=== PATIENT | female | born 1985 | race Caucasian/White ===

== ENCOUNTER 2017-06-10 19:05 | Emergency (ER) | payer SELFPAY ==
[2017-06-10 19:33] VITALS: BP 109/64; PULSE 89; TEMP 99.7; BMI 64.1
--- NOTE | 2017-06-10 21:03 | PDOC ---
History of Present Illness - General History Source: Patient Exam Limitations: No Limitations - History of Present Illness Initial Comments: 06/10/17 22:24 The patient is a 31 year old female, with no significant past medical history, who presents to the emergency department with flank pain and abdominal pain for approximately 3 days. The patient reports her pain was initially localized to the right flank. Patient reports she then noted pain in her abdomen 2 days ago. She reports the pain is localized suprapubically and describes it as a burning sensation. She reports associated dysuria, but denies hematuria, frequency, or urgency. Patient reports associated nausea and vomiting(nonbloody/nonbilious, last episode yesterday night), but denies any diarrhea or constipation. Today patient reports new onset of headache localized to the denominational bilaterally and chills. Patient denies any changes in vision, fever, chills, cough, or dizziness. Patient reports she gets headaches relatively frequently but not as strong as today. Patient states she has not taken anything for the pain. She denies any recent travel or sick contacts. Patients LMP was 05/31/17. Allergies: NKDA Past Surgical History: None reported. Social History: Non smoker. No ETOH or recreational drug use. <Azeb Delaney - Last Filed: 06/10/17 23:32> <Philomena Mcwilliams - Last Filed: 06/11/17 00:49> <Ziyad Orlando - Last Filed: 06/11/17 00:57> - General Chief Complaint: Pain Stated Complaint: PAIN, ACUTE Time Seen by Provider: 06/10/17 20:59 Past History <Azeb Delaney - Last Filed: 06/10/17 23:32> <Philomena Mcwilliams - Last Filed: 06/11/17 00:49> - Suicide/Smoking/Psychosocial Hx Smoking History: Never smoked Have you smoked in the past 12 months: No Information on smoking cessation initiated: No Hx Alcohol Use: No Drug/Substance Use Hx: No <Ziyad Orlando - Last Filed: 06/11/17 00:57> - Past Medical History Allergies/Adverse Reactions: Allergies Allergy/AdvReac Type Severity Reaction Status Date / Time No Known Allergies Allergy Verified 06/10/17 19:33 Home Medications: Ambulatory Orders Sulfamethoxazole/Trimethoprim [Bactrim Ds -] 1 tab PO BID #20 tablet 06/11/17 Review of Systems - Review of Systems Able to Perform ROS?: Yes Comments:: 06/10/17 22:30 CONSTITUTIONAL: Yes: chills. No fever, no fatigue EYES: No visual changes ENT: No ear pain, no sore throat CARDIOVASCULAR: No chest pain, no palpitations RESPIRATORY: No cough, no SOB GI: Yes abdominal pain, nausea, vomiting. No constipation, no diarrhea. GENITOURINARY: Yes dysuria. No frequency, no hematuria MUSCULOSKELETAL: Yes right flank pain. No back pain, no joint pain, no myalgias SKIN: No rash NEURO: No headache <Azeb Delaney - Last Filed: 06/10/17 23:32> *Physical Exam - Vital Signs Last Vital Signs Temp Pulse Resp BP Pulse Ox 99.7 F H 89 18 109/64 100 06/10/17 19:28 06/10/17 19:28 06/10/17 19:28 06/10/17 19:28 06/10/17 19:28 - Physical Exam Comments: 06/10/17 22:31 CONSTITUTIONAL: Well-appearing; well-nourished; in no apparent distress HEAD: Normocephalic; atraumatic EYES: PERRL; EOM intact ENMT: External appears normal; normal oropharynx NECK: Supple; non-tender; no cervical lymphadenopathy CARD: Normal S1, S2; no murmurs, rubs, or gallops RESP: Normal chest excursion with respiration; breath sounds clear and equal bilaterally; no wheezes, rhonchi, or rales BACK: Mild right CVA tenderness. No left CVA tenderness. ABD: Mild suprapubic tenderness. Soft, non-distended; no palpable organomegaly, no palpable hernias EXT: Normal ROM in all four extremities; non-tender to palpation; distal pulses intact SKIN: Warm, dry, no rash NEURO: No focal neurological deficiencies. <Azeb Delaney - Last Filed: 06/10/17 23:32> - Vital Signs Last Vital Signs Temp Pulse Resp BP Pulse Ox 99.7 F H 89 18 109/64 100 06/10/17 19:28 06/10/17 19:28 06/10/17 19:28 06/10/17 19:28 06/10/17 19:28 <Philomena Mcwilliams - Last Filed: 06/11/17 00:49> - Vital Signs Last Vital Signs Temp Pulse Resp BP Pulse Ox 99.7 F H 89 18 109/64 100 06/10/17 19:28 06/10/17 19:28 06/10/17 19:28 06/10/17 19:28 06/10/17 19:28 <Ziyad Orlando - Last Filed: 06/11/17 00:57> ED Treatment Course - LABORATORY CBC & Chemistry Diagram: 06/10/17 22:40 06/10/17 22:40 - ADDITIONAL ORDERS Additional order review: Laboratory Results 06/10/17 22:00 Urine Color Ltyellow Urine Appearance Slcloudy Urine pH 5.0 Urine Protein 1+ H Urine Glucose (UA) Negative Urine Ketones 1+ H Urine Blood 2+ H Urine Nitrite Negative Urine Bilirubin Negative Urine Urobilinogen Negative Urine RBC 11 Urine WBC 252 Ur Epithelial Cells Rare Urine Mucus Rare Urine HCG, Qual Negative - Medications Given in the ED: ED Medications Discontinued Medications Generic Name Dose Route Start Last Admin Trade Name Freq PRN Reason Stop Dose Admin Ketorolac Tromethamine 60 mg 06/10/17 21:32 06/10/17 22:05 Toradol Injection - IM 06/10/17 21:33 60 mg ONCE ONE Administration <Azeb Delaney - Last Filed: 06/10/17 23:32> - LABORATORY CBC & Chemistry Diagram: 06/10/17 22:40 06/10/17 22:40 - ADDITIONAL ORDERS Additional order review: Laboratory Results 06/10/17 06/10/17 22:40 22:00 Sodium 138 Potassium 3.8 Chloride 102 Carbon Dioxide 26 Anion Gap 10 BUN 8 Creatinine 0.6 Creat Clearance w eGFR > 60 Random Glucose 115 H Calcium 8.8 Total Bilirubin 1.6 H AST 14 L ALT 18 Alkaline Phosphatase 60 Total Protein 7.4 Albumin 3.9 Urine Color Ltyellow Urine Appearance Slcloudy Urine pH 5.0 Urine Protein 1+ H Urine Glucose (UA) Negative Urine Ketones 1+ H Urine Blood 2+ H Urine Nitrite Negative Urine Bilirubin Negative Urine Urobilinogen Negative Urine RBC 11 Urine WBC 252 Ur Epithelial Cells Rare Urine Mucus Rare Urine HCG, Qual Negative 06/10/17 22:40 RBC 3.66 MCV 87.6 MCHC 33.9 RDW 13.0 MPV 8.3 Neutrophils % 70.9 Lymphocytes % 18.9 Monocytes % 8.2 Eosinophils % 1.4 Basophils % 0.6 - RADIOLOGY Radiograph Interpretation: 06/11/17 00:50 DATE OF SERVICE: 2017-06-10 22:59:21 EXAM: ULTRASOUND RENAL No renal mass, stones or hydronephrosis bilaterally. Right kidney visualization slighlty limited by bowel gas. Mary Saucedo M.D. 06/11/2017 00:40 EST - Medications Given in the ED: ED Medications Discontinued Medications Generic Name Dose Route Start Last Admin Trade Name Freq PRN Reason Stop Dose Admin Ceftriaxone Sodium 1 gm/ 50 mls @ 100 mls/hr 06/10/17 22:32 06/10/17 22:44 Dextrose IVPB 06/10/17 23:01 100 mls/hr ONCE ONE Administration Ketorolac Tromethamine 60 mg 06/10/17 21:32 06/10/17 22:05 Toradol Injection - IM 06/10/17 21:33 60 mg ONCE ONE Administration <Philomena Mcwilliams - Last Filed: 06/11/17 00:49> - LABORATORY CBC & Chemistry Diagram: 06/10/17 22:40 06/10/17 22:40 <Ziyad Orlando - Last Filed: 06/11/17 00:57> Medical Decision Making - Medical Decision Making 06/11/17 00:55 Patient is a well-appearing 31-year-old female who presents to the ER with suprapubic abdominal pain, right flank pain, mild dysuria and intermittent headache which had resolved prior to arrival in the ER. On initial evaluation, patient noted to have low-grade fever, serial abdominal exams reveal suprapubic and right CVA tenderness only. There is no tenderness at the McBurney's point and Raines's is negative. CBC is within normal limit. Urinalysis reveals pyuria with small number of red blood cells per high-power field. Right kidney ultrasound shows no evidence of renal masses nephrolithiasis or hydronephrosis. I suspect mild pyelonephritis which may be treated as an outpatient with by mouth Bactrim. Urine cultures are been obtained and patient's received a gram of ceftriaxone in the ER. Patient tolerates by mouth and will be discharged. <Ziyad Orlando - Last Filed: 06/11/17 00:57> *DC/Admit/Observation/Transfer - Attestations Scribe Attestion: 06/10/17 22:31 Documentation prepared by Azeb Delaney, acting as medical/surgery registered nurse for Ziyad Orlando MD. <Azeb Delaney - Last Filed: 06/10/17 23:32> - Attestations Scribe Attestion: 06/11/17 00:50 Documentation prepared by Philomena Mcwilliams, acting as medical/surgery registered nurse for Ziyad Orlando MD <Philomena Mcwilliams - Last Filed: 06/11/17 00:49> - Attestations Physician Attestion: 06/11/17 00:54 The documentation was prepared by the scribe under my direct supervision. I have reviewed the documentation which correctly represents the findings, medical decision-making and critical action taken by me. <Ziyad Orlando - Last Filed: 06/11/17 00:57> Diagnosis at time of Disposition: Acute pyelonephritis - Discharge Dispostion Disposition: HOME Condition at time of disposition: Stable - Referrals Referrals: [facility] [Provider Group] - Patient Instructions Printed Discharge Instructions: DI for Kidney Infection
[2017-06-10] MEDS ORDERED: KETOROLAC TROMETHAMINE 60 MG/2 ML VIAL IM ONE (21:32)
[2017-06-10] MEDS ORDERED: KETOROLAC TROMETHAMINE 60 MG/2 ML VIAL ONE (21:46)
[2017-06-10 22:04] LABS: URINE APPEARANCE SLCLOUDY; URINE BILIRUBIN NEGATIVE (NEGATIVE); URINE BLOOD 2+ (NEGATIVE); URINE COLOR LTYELLOW; URINE GLUCOSE (UA) NEGATIVE (NEGATIVE); URINE KETONE 1+ (NEGATIVE); URINE NITRITE NEGATIVE (NEGATIVE); URINE UROBILINOGEN NEGATIVE mg/dL (0.2-1.0)
[2017-06-10 22:08] LABS: URINE LEUK ESTERASE 3+ (NEGATIVE); URINE MUCUS RARE; URINE PROTEIN 1+ (NEGATIVE); URINE RBC 11 /hpf (0-3); URINE WBC 252 /hpf (3-5)
[2017-06-10] MEDS ORDERED: CEFTRIAXONE 1 GM in DEXTROSE 5%-WATER - 50 ML IVPB ONE (22:32)
[2017-06-10] MEDS ORDERED: CEFTRIAXONE 50 ML ONE (22:41)
[2017-06-10 22:46] LABS: BASOPHIL 0.6 % (0-2.0); EOSINOPHIL 1.4 % (0-4.5); MCH 29.7 pg (25.7-33.7); MCHC 33.9 g/dl (32.0-36.0); MEAN CELL VOLUME 87.6 fl (80-96); MEAN PLT VOLUME 8.3 fl (7.5-11.1); NEUTROPHILS 70.9 % (42.8-82.8); PLATELET COUNT 265 K/MM3 (134-434); WHITE BLOOD COUNT 9.6 K/mm3 (4.0-10.0)
[2017-06-10 23:31] LABS: ALBUMIN 3.9 g/dl (3.4-5.0); ALK PHOS 60 U/L (45-117); ANION GAP 10 (8-16); BILIRUBIN,TOTAL 1.6 mg/dL (0.2-1.0); CALCIUM 8.8 mg/dL (8.5-10.1); CO2 26 mmol/L (21-32); CREATININE 0.6 mg/dL (0.55-1.02); GLUCOSE,RANDOM 115 mg/dL (74-106); SGOT/AST 14 U/L (15-37); SGPT/ALT 18 U/L (12-78); TOT PROT 7.4 g/dl (6.4-8.2)
== END 2017-06-11 01:05 | disposition home or self-care (01) ==
LOC: JER 19:05
PROC: 3E0233Z Introduction of Anti-inflammatory into Muscle, Percutaneous Approach (ICD-10-PCS; principal; 2017-06-10)
PROC: 3E03329 Introduction of Other Anti-infective into Peripheral Vein, Percutaneous Approach (ICD-10-PCS; 2017-06-10)
DX: N10 Acute pyelonephritis (principal)
CPT/HCPCS: 36415; 76775-TC; 80053; 81003; 81015; 84703; 85025; 87086; 87186; 99282-25

== ENCOUNTER 2017-06-12 08:44 | Inpatient (IN) | payer SELFPAY ==
[2017-06-12] MEDS ORDERED: SODIUM CHLORIDE 1,000 ML IV STA (09:51)
[2017-06-12] MEDS ORDERED: FAMOTIDINE 20 MG/50 ML IVPB 50 ML IVPB ONE ×2 (09:58→10:04)
[2017-06-12] MEDS ORDERED: ONDANSETRON 4 MG/2 ML VIAL IVPB ONE (09:58)
[2017-06-12] MEDS ORDERED: ACETAMINOPHEN 325 MG TABLET (FP) PO ONE (09:58)
[2017-06-12] MEDS ORDERED: ONDANSETRON 4 MG/2 ML VIAL ONE (10:03)
[2017-06-12] MEDS ORDERED: ACETAMINOPHEN 325 MG TABLET (FP) ONE (10:03)
[2017-06-12 10:26] LABS: BASOPHIL 0.4 % (0-2.0); EOSINOPHIL 0.3 % (0-4.5); MCHC 33.2 g/dl (32.0-36.0); MEAN CELL VOLUME 87.3 fl (80-96); MEAN PLT VOLUME 8.6 fl (7.5-11.1); PLATELET COUNT 265 K/MM3 (134-434); RDW 13.1 % (11.6-15.6)
[2017-06-12 10:27] LABS: URINE APPEARANCE CLOUDY; URINE BILIRUBIN NEGATIVE (NEGATIVE); URINE BLOOD 2+ (NEGATIVE); URINE COLOR AMBER; URINE GLUCOSE (UA) NEGATIVE (NEGATIVE); URINE KETONE 1+ (NEGATIVE); URINE NITRITE NEGATIVE (NEGATIVE); URINE UROBILINOGEN 4.0 E.U/dl mg/dL (0.2-1.0)
--- NOTE | 2017-06-12 10:29 | PDOC ---
History of Present Illness - General History Source: Patient Exam Limitations: No Limitations - History of Present Illness Initial Comments: 06/12/17 10:50 Patient is a 31 year old female with a significant past medical history of who presents to the ED with complaints of abdominal pain that began this morning at 7am. Patient reports pain began this morning suddenly at 7am while at home. She reports coming to the ED with mild pyelonephritis which she states is starting to resolve after being prescribed bactrim. Patient reports the abdominal pain is intermittent that becomes more intense with each return. She reports experiencing intermittent episodes of nausea and vomiting x2 secondary to abdominal pain. She states vomit is slight green in coloration with a little blood present. Patient reports experiencing chills and fever secondary to abdominal pain. Denies chest pain, SOB. Denies contact with sick individuals, out of state travel. Denies any other symptoms. Allergies: None Surgical history: None Social history: No smoking. No alcohol. No illicit drugs. PMD: None <Moo Mon - Last Filed: 06/12/17 10:50> - General History Source: Patient, Old Records Exam Limitations: No Limitations <Bang Sargent - Last Filed: 06/12/17 12:23> - General Chief Complaint: Pain Stated Complaint: ABD PAIN Time Seen by Provider: 06/12/17 09:23 Past History <Moo Mon - Last Filed: 06/12/17 10:50> - Past Medical History Other medical history: DENIES - Suicide/Smoking/Psychosocial Hx Smoking History: Never smoked Have you smoked in the past 12 months: No Hx Alcohol Use: No Drug/Substance Use Hx: No Substance Use Type: None <Bang Sargent - Last Filed: 06/12/17 12:23> - Past Medical History Allergies/Adverse Reactions: Allergies Allergy/AdvReac Type Severity Reaction Status Date / Time No Known Allergies Allergy Verified 06/12/17 08:48 Home Medications: Ambulatory Orders Sulfamethoxazole/Trimethoprim [Bactrim Ds -] 1 tab PO BID #20 tablet 06/11/17 Review of Systems - Review of Systems Able to Perform ROS?: Yes Comments:: 06/12/17 10:50 GENERAL/CONSTITUTIONAL: No fever or chills. No weakness. HEAD, EYES, EARS, NOSE AND THROAT: No change in vision. No ear pain or discharge. No sore throat. CARDIOVASCULAR: No chest pain or shortness of breath. RESPIRATORY: No cough, wheezing, or hemoptysis. GASTROINTESTINAL: +Vomiting. +Nausea. No diarrhea or constipation. GENITOURINARY: No dysuria, frequency, or change in urination. MUSCULOSKELETAL: +Abdominal pain. No joint or muscle swelling or pain. No neck or back pain. SKIN: No rash NEUROLOGIC: No headache, vertigo, loss of consciousness, or change in strength/ sensation. ENDOCRINE: No increased thirst. No abnormal weight change. HEMATOLOGIC/LYMPHATIC: No anemia, easy bleeding, or history of blood clots. ALLERGIC/IMMUNOLOGIC: No hives or skin allergy. All Other Systems: Reviewed and Negative <Moo Mon - Last Filed: 06/12/17 10:50> *Physical Exam - Vital Signs Last Vital Signs Temp Pulse Resp BP Pulse Ox 99.9 F H 79 18 139/82 99 06/12/17 08:47 06/12/17 08:47 06/12/17 08:47 06/12/17 08:47 06/12/17 08:47 - Physical Exam Comments: 06/12/17 10:51 GENERAL: Awake, alert, and fully oriented, in no acute distress HEAD: No signs of trauma EYES: PERRLA, EOMI, sclera anicteric, conjunctiva clear ENT: Auricles normal inspection, hearing grossly normal, nares patent, oropharynx clear without exudates. Moist mucosa NECK: Normal ROM, supple, no lymphadenopathy, JVD, or masses LUNGS: Breath sounds equal, clear to auscultation bilaterally. No wheezes, and no crackles HEART: Regular rate and rhythm, normal S1 and S2, no murmurs, rubs or gallops ABDOMEN: +Raines's sign negative. +Epigastric tenderness. +Right upper quadrant tenderness. +Mild right sided CVA tenderness. Soft, normoactive bowel sounds. No guarding, no rebound. No masses EXTREMITIES: Normal range of motion, no edema. No clubbing or cyanosis. No cords, erythema, or tenderness NEUROLOGICAL: Cranial nerves II through XII grossly intact. Normal speech, normal gait SKIN: Warm, Dry, normal turgor, no rashes or lesions noted. <Moo Mon - Last Filed: 06/12/17 10:50> - Vital Signs Last Vital Signs Temp Pulse Resp BP Pulse Ox 99.9 F H 79 18 139/82 99 06/12/17 08:47 06/12/17 08:47 06/12/17 08:47 06/12/17 08:47 06/12/17 08:47 <Bang Sargent - Last Filed: 06/12/17 12:23> ED Treatment Course - LABORATORY CBC & Chemistry Diagram: 06/12/17 09:47 06/12/17 09:47 - ADDITIONAL ORDERS Additional order review: Laboratory Results 06/12/17 09:47 Urine Color Jocelin Urine Appearance Cloudy Urine pH 5.0 Urine Protein 2+ H Urine Glucose (UA) Negative Urine Ketones 1+ H Urine Blood 2+ H Urine Nitrite Negative Urine Bilirubin Negative Urine Urobilinogen 4.0 e.u/dl H Urine RBC 19 Urine WBC 18 Ur Epithelial Cells Many Urine Bacteria Rare Urine Mucus Many Urine HCG, Qual Negative 06/12/17 09:47 RBC 4.03 MCV 87.3 MCHC 33.2 RDW 13.1 MPV 8.6 Neutrophils % 78.0 Lymphocytes % 11.5 D Monocytes % 9.8 Eosinophils % 0.3 Basophils % 0.4 - Medications Given in the ED: ED Medications Discontinued Medications Generic Name Dose Route Start Last Admin Trade Name [place] PRN Reason Stop Dose Admin Acetaminophen 650 mg 06/12/17 09:58 06/12/17 10:02 Tylenol - PO 06/12/17 09:59 650 mg ONCE ONE Administration Sodium Chloride 1,000 mls @ 1,000 mls/hr 06/12/17 09:51 06/12/17 10:01 Normal Saline - IV 06/12/17 10:50 1,000 mls/hr ASDIR STA Administration Famotidine/Sodium Chloride 50 mls @ 100 mls/hr 06/12/17 09:58 06/12/17 10:02 Pepcid 20 Mg Premixed Ivpb - IVPB 06/12/17 10:27 100 mls/hr ONCE ONE Administration Ondansetron HCl 4 mg 06/12/17 09:58 06/12/17 10:02 Zofran Injection IVPB 06/12/17 09:59 4 mg ONCE ONE Administration <Moo Mon - Last Filed: 06/12/17 10:50> - LABORATORY CBC & Chemistry Diagram: 06/12/17 09:47 06/12/17 09:47 - RADIOLOGY Radiology Studies Ordered: Category Date Time Status ABDOMEN US -LIMITED [US] Stat Ultrasound 06/12/17 09:59 Ordered <Bang Sargent - Last Filed: 06/12/17 12:23> Medical Decision Making - Medical Decision Making 06/12/17 10:02 A portion of this note was documented by scribe services under my direction. I have reviewed the details of the note, within reason, and agree with the documentation with the following case summary and management plan written by me. Patient treated in the ED. Nursing notes are reviewed and incorporated into the medical decision-making. Vital signs reviewed. Peripheral IV access obtained by the nurse, laboratory studies are drawn and sent, reviewed and interpreted by myself. Vital Signs Temp Pulse Resp BP Pulse Ox 99.9 F H 79 18 139/82 99 06/12/17 08:47 10 08:47 10 08:47 06/12/17 08:47 06/12/17 08:47 31 year old female c/ no pmh p/w upper abd pain since today. Pt was seen here 2 days ago, and dx c/ R pyelonephritis and d/c'd c/ bactrim. Had persistent R flank pain that improved and dysuria that improved. Today had epigastric and RUQ pain with nausea and 2x vomiting. I suspect that this may be gastritis. however, will send RUQ u/s to r/o biliary colic. This may potentially be a persistence of her pyelonephritis. Labs, UA, pain control, and reassess. 06/12/17 12:21 CBC, BMP 06/12/17 09:47 06/12/17 09:47 CMP Sodium 135 mmol/L (136-145) L 06/12/17 09:47 Potassium 3.9 mmol/L (3.5-5.1) 06/12/17 09:47 Chloride 101 mmol/L (98-107) 06/12/17 09:47 Carbon Dioxide 26 mmol/L (21-32) 06/12/17 09:47 Anion Gap 8 (8-16) 06/12/17 09:47 BUN 6 mg/dL (7-18) L D 06/12/17 09:47 Creatinine 0.8 mg/dL (0.55-1.02) D 06/12/17 09:47 Creat Clearance w eGFR > 60 (>60) 06/12/17 09:47 Random Glucose 100 mg/dL (74-106) 06/12/17 09:47 Calcium 9.3 mg/dL (8.5-10.1) 06/12/17 09:47 Total Bilirubin 1.5 mg/dL (0.2-1.0) H 06/12/17 09:47 AST 110 U/L (15-37) H D 06/12/17 09:47 ALT 80 U/L (12-78) H D 06/12/17 09:47 Alkaline Phosphatase 86 U/L (45-117) D 06/12/17 09:47 Total Protein 8.0 g/dl (6.4-8.2) 06/12/17 09:47 Albumin 3.9 g/dl (3.4-5.0) 06/12/17 09:47 Lipase 98 U/L (73-393) 06/12/17 09:47 Urine Test Results Urine Color Jocelin 06/12/17 09:47 Urine Appearance Cloudy 06/12/17 09:47 Urine pH 5.0 (5.0-8.0) 06/12/17 09:47 Urine Protein 2+ (NEGATIVE) H 06/12/17 09:47 Urine Glucose (UA) Negative (NEGATIVE) 06/12/17 09:47 Urine Ketones 1+ (NEGATIVE) H 06/12/17 09:47 Urine Blood 2+ (NEGATIVE) H 06/12/17 09:47 Urine Nitrite Negative (NEGATIVE) 06/12/17 09:47 Urine Bilirubin Negative (NEGATIVE) 06/12/17 09:47 Urine RBC 19 /hpf (0-3) 06/12/17 09:47 Urine WBC 18 /hpf (3-5) 06/12/17 09:47 Ur Epithelial Cells Many /hpf (FEW) 06/12/17 09:47 Urine Bacteria Rare /hpf (NONE SEEN) 06/12/17 09:47 Urine Mucus Many 06/12/17 09:47 Ultrasound shows contracted gallbladder with multiple gallstones. Mildly elevated LFTs which is increased from 2 days ago is concerning for choledolithiasis. Case discussed with Dr. Singh who recommended MRCP. Case discussed with [facility] hospitalist. Case accepted to med/surg admission. Case discussed in detail with admitting physician including history, physical exam and ancillary studies. Admitting physician has assumed care for the patient, will follow all pending diagnostics and will complete the evaluation and treatment. <Bang Sargent - Last Filed: 06/12/17 12:23> *DC/Admit/Observation/Transfer - Attestations Scribe Attestion: 06/12/17 10:51 Documentation prepared by Moo Mon, acting as medical instrument cable fabricator for Bang Sargent MD. <Moo Mon - Last Filed: 06/12/17 10:50> - Discharge Dispostion Admit: Yes <Bang Sargent - Last Filed: 06/12/17 12:23> Diagnosis at time of Disposition: Common bile duct calculus - Discharge Dispostion Condition at time of disposition: Stable
[2017-06-12 10:30] LABS: URINE PROTEIN 2+ (NEGATIVE)
[2017-06-12 10:42] LABS: URINE BACTERIA RARE /hpf (NONE SEEN); URINE MUCUS MANY; URINE RBC 19 /hpf (0-3); URINE WBC 18 /hpf (3-5)
[2017-06-12 11:03] LABS: ALBUMIN 3.9 g/dl (3.4-5.0); ANION GAP 8 (8-16); CALCIUM 9.3 mg/dL (8.5-10.1); CO2 26 mmol/L (21-32); CREATININE 0.8 mg/dL (0.55-1.02); GLUCOSE,RANDOM 100 mg/dL (74-106); SGOT/AST 110 U/L (15-37)
[2017-06-12 11:06] LABS: ALK PHOS 86 U/L (45-117); BILIRUBIN,TOTAL 1.5 mg/dL (0.2-1.0); SGPT/ALT 80 U/L (12-78)
--- NOTE | 2017-06-12 12:22 | HP ---
CHIEF COMPLAINT: Abdominal pain, nausea, vomiting PCP: None HISTORY OF PRESENT ILLNESS: Patient is a 31 year-old female with no significant PMH who presented to the ED with a complaint of abdominal pain x several hours. Patient reported pain began this morning suddenly at 7am while at home. She described it as intermittent but becomes more intense with each recurrence. She reported feeling nauseous and two episodes of vomiting slight green vomit with a little blood. She reported experiencing chills. Patient appeared two days ago in the ED with complaint of flank pain and abdominal pain x 3 days. The flnak pain came first and was localized to the right side. Then the abdominal pain developed in the suprapubic area and patient described it as a burning sensation. Patient also reported on that visit one episode of nausea and vomiting, bilateral headache, and chills. Discharged with prescription for Bactrim. 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 Smoking: no Alcohol: no Drugs: no Family History: Allergies No Known Allergies Allergy (Verified 06/12/17 08:48) HOME MEDICATIONS: Home Medications Medication Instructions Recorded Sulfamethoxazole/Trimethoprim 1 tab PO BID #20 tablet 06/11/17 [Bactrim Ds -] REVIEW OF SYSTEMS CONSTITUTIONAL: Absent: fever, chills, diaphoresis, generalized weakness, malaise, loss of appetite, weight change HEENT: Absent: rhinorrhea, nasal congestion, throat pain, throat swelling, difficulty swallowing, mouth swelling, ear pain, eye pain, visual changes CARDIOVASCULAR: Absent: chest pain, syncope, palpitations, irregular heart rate, lightheadedness , peripheral edema RESPIRATORY: Absent: cough, shortness of breath, dyspnea with exertion, orthopnea, wheezing, stridor, hemoptysis GASTROINTESTINAL: Present: abdominal pain, nausea, vomiting Absent: abdominal distension, diarrhea, constipation, melena, hematochezia GENITOURINARY: Present: dysuria, flank pain Absent: frequency, urgency, hesitancy, hematuria, genital pain MUSCULOSKELETAL: Absent: myalgia, arthralgia, joint swelling, back pain, neck pain SKIN: Absent: rash, itching, pallor HEMATOLOGIC/IMMUNOLOGIC: Absent: easy bleeding, easy bruising, lymphadenopathy, frequent infections ENDOCRINE: Absent: unexplained weight gain, unexplained weight loss, heat intolerance, cold intolerance NEUROLOGIC: Absent: headache, focal weakness or paresthesias, dizziness, unsteady gait, seizure, mental status changes, bladder or bowel incontinence PSYCHIATRIC: Absent: anxiety, depression, suicidal or homicidal ideation, hallucinations. PHYSICAL EXAMINATION Vital Signs - 24 hr 06/12/17 08:47 Temperature 99.9 F H Pulse Rate 79 Respiratory 18 Rate Blood Pressure 139/82 O2 Sat by Pulse 99 Oximetry (%) GENERAL: Awake, alert, and fully oriented, in no acute distress. HEAD: Normal with no signs of trauma. EYES: Pupils equal, round and reactive to light, extraocular movements intact, sclera anicteric, conjunctiva clear. No ptosis. EARS, NOSE, THROAT: Ears normal, nares patent, oropharynx clear without exudates. Moist mucous membranes. NECK: Normal range of motion, supple without lymphadenopathy, JVD, or masses. LUNGS: Breath sounds equal, clear to auscultation bilaterally. No wheezes, and no crackles. No accessory muscle use. HEART: Regular rate and rhythm, normal S1 and S2 without murmur, rub or gallop. ABDOMEN: Soft, RUQ tenderness, active bowel sounds MUSCULOSKELETAL: Normal range of motion at all joints. No bony deformities or tenderness. No CVA tenderness. UPPER EXTREMITIES: 2+ pulses, warm, well-perfused. No cyanosis. No clubbing. No peripheral edema. LOWER EXTREMITIES: 2+ pulses, warm, well-perfused. No calf tenderness. No peripheral edema. NEUROLOGICAL: Cranial nerves II-XII intact. Normal speech. Laboratory Results - last 24 hr 06/12/17 06/12/17 06/12/17 09:47 09:47 09:47 WBC 11.0 H RBC 4.03 Hgb 11.7 Hct 35.2 MCV 87.3 MCH 29.0 MCHC 33.2 RDW 13.1 Plt Count 265 MPV 8.6 Neutrophils % 78.0 Lymphocytes % 11.5 D Monocytes % 9.8 Eosinophils % 0.3 Basophils % 0.4 Sodium 135 L Potassium 3.9 Chloride 101 Carbon Dioxide 26 Anion Gap 8 BUN 6 L D Creatinine 0.8 D Creat Clearance w eGFR > 60 Random Glucose 100 Calcium 9.3 Total Bilirubin 1.5 H AST 110 H D ALT 80 H D Alkaline Phosphatase 86 D Total Protein 8.0 Albumin 3.9 Lipase 98 Urine Color Jocelin Urine Appearance Cloudy Urine pH 5.0 Urine Protein 2+ H Urine Glucose (UA) Negative Urine Ketones 1+ H Urine Blood 2+ H Urine Nitrite Negative Urine Bilirubin Negative Urine Urobilinogen 4.0 e.u/dl H Urine RBC 19 Urine WBC 18 Ur Epithelial Cells Many Urine Bacteria Rare Urine Mucus Many Urine HCG, Qual Negative ASSESSMENT/PLAN 31 year-old female with a no significant PMH treated in ED two days ago for UTI , admitted today for suspected choledocholilithiasis. [id number] UTI --start ceftriaxone (day #1) Cholelithiasis --US shows contracted gallbladder with multiple gallstones --mildly elevated LFTs which is increased from 2 days ago concerning for choledolithiasis --MRCP done, pending read --NPO --IV fluids --morphine PRN Visit type - Emergency Visit Emergency Visit: Yes ED Registration Date: 06/12/17 Care time: The patient presented to the Emergency Department on the above date and was hospitalized for further evaluation of their emergent condition. - New Patient This patient is new to me today: Yes Date on this admission: 06/17/17 - Critical Care Critical Care patient: No
[2017-06-12] MEDS ORDERED: ONDANSETRON 4 MG/2 ML VIAL IVPB PRN (12:43)
[2017-06-12] MEDS ORDERED: CEFTRIAXONE 1 GM in DEXTROSE 5%-WATER - 100 ML IVPB SCH (12:45)
[2017-06-12] MEDS ORDERED: CEFTRIAXONE 50 ML ONE (13:01)
[2017-06-12] MEDS: SODIUM CHLORIDE 1,000 ML IV SCH (13:09)
[2017-06-12 13:17] LABS: URINE LEUK ESTERASE TRACE (NEGATIVE)
[2017-06-12 13:18] LABS: URINE RBC 0-3 /hpf (0-3)
[2017-06-12 13:19] LABS: URINE BACTERIA FEW /hpf (NEGATIVE); URINE WBC 0-3 /hpf (3-5)
--- NOTE | 2017-06-12 15:17 | PN ---
Progress Note (short form) - Note Progress Note: ID consult dictated imp/reccd 31 year old female seen in ED 06/10 with right flank and suprapubic pain with chills ua with pyuria, renal sono no obstruction, she was discharged on bactrim she took 2 doses of bactrim this am she developed RUQ/mid epigastric pain with nausea and vomiting fever last night abdominal sonogram with cholelithiasis- no gb wall thickening or fluid abnl LFTs noted UTI abnl lfts/cholelithiasis- r/o biliary disease- ?choledocholithiasis blood cultures pending urine cultue GNR GI has ordered MRCP would agree with rocephin f/u cultures ivf Problem List - Problems (1) UTI (urinary tract infection) Code(s): N39.0 - URINARY TRACT INFECTION, SITE NOT SPECIFIED (2) RUQ pain Code(s): R10.11 - RIGHT UPPER QUADRANT PAIN (3) Abnormal LFTs Code(s): R79.89 - OTHER SPECIFIED ABNORMAL FINDINGS OF BLOOD CHEMISTRY
[2017-06-12 15:43] VITALS: BMI 26.3
[2017-06-12] MEDS ORDERED: PT OWN MED DRAWER 7, Y5N ONE (15:55)
[2017-06-12] MEDS ORDERED: ACETAMINOPHEN 325 MG TABLET (FP) PO PRN (16:33)
[2017-06-12] MEDS: morphine CARPU-JECT 2 MG/1 ML DISP.SYRIN IVPUSH PRN (16:55)
--- NOTE | 2017-06-12 17:27 | CONS ---
DATE OF CONSULTATION: DATE OF DICTATION: 06/12/2017 INFECTIOUS DISEASE CONSULTATION HISTORY OF PRESENT ILLNESS: This is a 31-female, originally presented to the emergency room on June 10 complaining of some chills. She had some right flank pain and some suprapubic discomfort and she also had noted some chills. She was found to have pyuria. She had a renal sonogram that was unremarkable, and she was started on Bactrim, which she took 2 pills yesterday. Last night she again had some chills. She started having intermittent midepigastric right upper quadrant pain. This morning she had 2 episodes of nausea and vomiting, and she came to the emergency room. She has no chest pain. She is not short of breath. She has no diarrhea. There is no history of any travel. She has no known drug allergies. Besides the Bactrim, she does not take any medicine. She has never had any surgery. She has had 2 C-sections in the past. FAMILY HISTORY: Not available. SOCIAL HISTORY: She lives with her brother. She is originally from [facility]. She has 2 children who are living in [place]. She has been in this country for 3 years and has not returned back. There is no history of any cigarette or substance use. REVIEW OF SYSTEMS: She has no sore throat. She has no cough or chest pain. She has had nausea and vomiting, which are better. She continues to have abdominal discomfort. PHYSICAL EXAMINATION: General: She is awake and alert. She is resting comfortably. Vital signs: T-max is 99.9, current temperature 98.6, pulse 70, blood pressure 106/64, respiratory rate 18, she is saturating 98% on room air. HEENT: Normocephalic. Eyes are anicteric. Neck: Supple. She has no thrush. Lungs: Clear to auscultation. Heart: Regular rate and rhythm. Abdomen: Soft, she has no distention, she has bowel sounds, she has mild right upper quadrant midepigastric discomfort, she has very mild right CVA tenderness as well. She has no suprapubic pain. Extremities: Without edema. Skin: She has no rash. LABORATORY: White count is 11,000. Hemoglobin is 11.7, platelets are 265. BUN and creatinine are 6 and 2.8. Total bilirubin of 1.5 with an AST of 110 and ALT of 80, and a normal alkaline phosphatase. Lipase is normal at 98. Urinalysis from the 4th shows 252 white cells. Abdominal sonogram is notable for cholelithiasis without gallbladder wall thickening or pericholecystic fluid. Her renal sonogram done on the 4th shows no evidence of any obstruction. IMPRESSION: In summary, this is an otherwise healthy 31-year-old woman, no recent antibiotics, no prior history of urinary tract infection, who has evidence of urinary tract infection, possible biliary disease with right upper quadrant pain. Blood cultures have been sent. Urine culture has a gram-negative petrona. Gastrointestinal has ordered a magnetic resonance cholangiopancreatography to evaluate for choledocholithiasis. Would agree with Rocephin. Follow up cultures and continue intravenous fluids. Further recommendations to follow. Vern HOLM/[id number]
[2017-06-12] MEDS: ACETAMINOPHEN 650 MG SUPP.RECT PR PRN (23:47)
[2017-06-13] MEDS: SODIUM CHLORIDE 1,000 ML IV SCH ×4 (01:37→21:20)
[2017-06-13 09:31] LABS: BASOPHIL 0.4 % (0-2.0); EOSINOPHIL 1.5 % (0-4.5); MCH 29.3 pg (25.7-33.7); MCHC 33.2 g/dl (32.0-36.0); MEAN CELL VOLUME 88.5 fl (80-96); MEAN PLT VOLUME 8.6 fl (7.5-11.1); PLATELET COUNT 249 K/MM3 (134-434); RDW 13.3 % (11.6-15.6); WHITE BLOOD COUNT 8.2 K/mm3 (4.0-10.0)
[2017-06-13 09:47] LABS: INR 1.33 (0.82-1.09); PROTHROMBIN TIME (PATIENT) 14.7 SEC (9.98-11.88)
[2017-06-13 09:50] LABS: ACTIVATED PTT 28.2 SECONDS (26.9-34.4)
[2017-06-13 09:57] LABS: ANION GAP 9 (8-16); CALCIUM 7.9 mg/dL (8.5-10.1); CO2 21 mmol/L (21-32); CREATININE 0.5 mg/dL (0.55-1.02); GLUCOSE,RANDOM 70 mg/dL (74-106); MAGNESIUM 2.1 mg/dL (1.8-2.4); PHOSPHOROUS 2.4 mg/dL (2.5-4.9)
[2017-06-13] MEDS ORDERED: DEXTROSE 5%-WATER - 50 ML IVPB ONE (10:54)
[2017-06-13] MEDS ORDERED: cefTRIAXone SODIUM 1 GM VIAL ONE (10:54)
[2017-06-13] MEDS: CEFTRIAXONE 1 GM in DEXTROSE 5%-WATER - 50 ML IVPB SCH (10:56)
--- NOTE | 2017-06-13 13:01 | PN ---
Physical Exam: SUBJECTIVE: Patient seen and examined oob to chair with animal attendants and trainers. Has RUQ pain when she lays down. OBJECTIVE: Vital Signs Period Temp Pulse Resp BP Sys/Muhammad Pulse Ox Last 24 Hr 98.2 F-101 F 68-86 16-20 101-124/53-78 98-100 GENERAL: The patient is awake, alert, and fully oriented, in no acute distress. LUNGS: Breath sounds equal, clear to auscultation bilaterally, no wheezes, no crackles, no accessory muscle use. HEART: Regular rate and rhythm, S1, S2 without murmur, rub or gallop. ABDOMEN: RUQ tenderness, normoactive bowel sounds, no guarding, no rebound, EXTREMITIES: 2+ pulses, warm, well-perfused, no edema. NEUROLOGICAL: Cranial nerves II through XII grossly intact. Normal speech, steady gait. Laboratory Results - last 24 hr 06/13/17 06/13/17 06/13/17 09:10 09:10 09:10 WBC 8.2 RBC 3.72 Hgb 10.9 Hct 32.9 MCV 88.5 MCH 29.3 MCHC 33.2 RDW 13.3 Plt Count 249 MPV 8.6 Neutrophils % 61.0 D Lymphocytes % 25.3 D Monocytes % 11.8 H Eosinophils % 1.5 D Basophils % 0.4 PT with INR 14.70 H INR 1.33 H PTT (Actin FS) 28.2 Sodium 139 Potassium 4.3 Chloride 109 H Carbon Dioxide 21 Anion Gap 9 BUN 6 L Creatinine 0.5 L D Random Glucose 70 L D Calcium 7.9 L Phosphorus 2.4 L Magnesium 2.1 Lipase 130 Blood Type Antibody Screen 06/13/17 06/13/17 09:10 10:03 WBC RBC Hgb Hct MCV MCH MCHC RDW Plt Count MPV Neutrophils % Lymphocytes % Monocytes % Eosinophils % Basophils % PT with INR INR PTT (Actin FS) Sodium Potassium Chloride Carbon Dioxide Anion Gap BUN Creatinine Random Glucose Calcium Phosphorus Magnesium Lipase Blood Type B POSITIVE B POSITIVE Antibody Screen Negative Active Medications Generic Name Dose Route Start Last Admin Trade Name Freq PRN Reason Stop Dose Admin Acetaminophen 650 mg 06/12/17 23:03 06/12/17 23:47 Tylenol Suppository - [place] 650 mg Q4H PRN Administration FEVER OR PAIN Sodium Chloride 1,000 mls @ 125 mls/hr 06/12/17 12:45 10/07/17 10:22 Normal Saline - IV 125 mls/hr ASDIR THUY Administration Ceftriaxone Sodium 1 gm/ 50 mls @ 100 mls/hr 06/12/17 14:04 06/13/17 10:56 Dextrose IVPB 100 mls/hr DAILY THUY Administration Morphine Sulfate 1 mg 06/12/17 16:33 06/12/17 16:55 Morphine Injection - IVPUSH 1 mg Q4H PRN Administration PAIN Ondansetron HCl 4 mg 06/12/17 12:43 Zofran Injection IVPB Q6H PRN NAUSEA ASSESSMENT/PLAN: 31 year-old female with a no significant PMH. Admitted for suspected choledocholilithiasis and has acute right pyelonephritis. E.coli UTI --culture from 06/10 ED visit grew E.coli --Tm 101, leukocytosis resolved --continue ceftriaxone (day #2) Cholelithiasis r/o choledocholelithiasis --06/12 US shows contracted gallbladder with multiple gallstones --06/13 MRCP shows numerous gallstones almost completely opacifying gallbladder; 0.5 x 0.3 intraluminal focus upper aspect of CBD, stone v. motion artifact? spoke with Dr. Adames, need repeat MRCP --mildly elevated LFTs yesterday, repeat pending --GI following --surgical consult request for Dr. Duenas F/E/N Fluids: NS @ 125mL/hr Electrolytes: replete as indicated Nutrition: NPO DVT prophylaxis: hold chemical prophylaxis for possible surgery; oob, ambulation Dispo: continues to require inpatient care. Full code. Visit type - Emergency Visit Emergency Visit: Yes ED Registration Date: 06/12/17 Care time: The patient presented to the Emergency Department on the above date and was hospitalized for further evaluation of their emergent condition. - New Patient This patient is new to me today: No - Critical Care Critical Care patient: No
[2017-06-13 13:52] LABS: ALBUMIN 3.2 g/dl (3.4-5.0); ALK PHOS 114 U/L (45-117); BILIRUBIN,DIRECT 0.3 mg/dL (0.0-0.2); BILIRUBIN,TOTAL 1.1 mg/dL (0.2-1.0); SGOT/AST 121 U/L (15-37); SGPT/ALT 201 U/L (12-78); TOT PROT 6.6 g/dl (6.4-8.2)
[2017-06-13] MEDS: morphine CARPU-JECT 2 MG/1 ML DISP.SYRIN IVPUSH PRN ×2 (17:32→21:21)
--- NOTE | 2017-06-13 19:22 | EKG ---
Test Reason : Blood Pressure : / mmHG Vent. Rate : 074 BPM Atrial Rate : 074 BPM P-R Int : 170 ms QRS Dur : 086 ms QT Int : 404 ms P-R-T Axes : 023 014 011 degrees QTc Int : 448 ms NORMAL SINUS RHYTHM LOW VOLTAGE QRS RSR' IN V2 ABNORMAL ECG NO PREVIOUS ECGS AVAILABLE REPEAT EKG IF CLINICALLY INDICATED Confirmed by LEONELA RICHARD MD ([id number]) on 06/13/2017 7:22:41 PM Referred By: Confirmed By:LEONELA RICHARD MD
[2017-06-14] MEDS: morphine CARPU-JECT 2 MG/1 ML DISP.SYRIN IVPUSH PRN ×4 (02:11→18:53)
[2017-06-14 08:38] LABS: BASOPHIL 0.6 % (0-2.0); EOSINOPHIL 2.1 % (0-4.5); MCH 28.9 pg (25.7-33.7); MCHC 32.9 g/dl (32.0-36.0); MEAN CELL VOLUME 87.9 fl (80-96); MEAN PLT VOLUME 8.5 fl (7.5-11.1); NEUTROPHILS 53.3 % (42.8-82.8); PLATELET COUNT 281 K/MM3 (134-434); RDW 12.9 % (11.6-15.6); WHITE BLOOD COUNT 6.6 K/mm3 (4.0-10.0)
[2017-06-14 09:02] LABS: ALBUMIN 3.3 g/dl (3.4-5.0); ANION GAP 12 (8-16); BILIRUBIN,TOTAL 1.2 mg/dL (0.2-1.0); CALCIUM 8.2 mg/dL (8.5-10.1); CO2 18 mmol/L (21-32); CREATININE 0.4 mg/dL (0.55-1.02); GLUCOSE,RANDOM 64 mg/dL (74-106); MAGNESIUM 2.1 mg/dL (1.8-2.4); PHOSPHOROUS 2.7 mg/dL (2.5-4.9); SGOT/AST 46 U/L (15-37); SGPT/ALT 134 U/L (12-78)
[2017-06-14 09:06] LABS: ALK PHOS 98 U/L (45-117); TOT PROT 7.3 g/dl (6.4-8.2)
[2017-06-14] MEDS ORDERED: cefTRIAXone SODIUM 1 GM VIAL ONE (09:41)
[2017-06-14] MEDS ORDERED: DEXTROSE 5%-WATER - 50 ML IVPB ONE (09:41)
[2017-06-14] MEDS: CEFTRIAXONE 1 GM in DEXTROSE 5%-WATER - 50 ML IVPB SCH (09:43)
--- NOTE | 2017-06-14 11:00 | CON.GI ---
Consult Consult Specialty:: GI Referred by:: Bogdan Esquivel NP Reason for Consultation:: choledocholithiasis, abnl liver chemistries - History of Present Illness Chief Complaint: 31 y.o. woman came to ER twice this past week with abdominal discomfort. On first visit was treated for UTI. On second visit complained of nausea/vomiting; sonogram showed multiple gallstones, liver chemistries were newly elevated (AST/ALT had been below 20 on 06/10, on second visit were above 100, bilirubin was 1.5). Pt has received IV antibiotics, ALT now down to 46, but persistent pain and nausea. Describes discomfort in epigastrium. MRI/MRCP done twice -> gallbladder chock full of stones, with at least 2 stones in common bile duct. - History Source History Provided By: Patient Limitations to Obtaining History: No Limitations - Past Medical History Renal/: Yes: UTI ...LMP: 05/31/17 ...: No - Past Surgical History Past Surgical History: Yes: None - Alcohol/Substance Use Hx Alcohol Use: No - Smoking History Smoking history: Never smoked Have you smoked in the past 12 months: No Home Medications - Allergies Allergies/Adverse Reactions: Allergies Allergy/AdvReac Type Severity Reaction Status Date / Time No Known Allergies Allergy Verified 06/12/17 08:48 - Home Medications Home Medications: Ambulatory Orders Sulfamethoxazole/Trimethoprim [Bactrim Ds -] 1 tab PO BID #20 tablet 06/11/17 Physical Exam-GI Vital Signs: Vital Signs Temperature 98.4 F 06/14/17 08:42 Pulse Rate 72 06/14/17 08:42 Respiratory Rate 20 06/14/17 08:42 Blood Pressure 101/64 06/14/17 08:42 O2 Sat by Pulse Oximetry (%) 96 06/13/17 21:00 Constitutional: Yes: Well Nourished Eyes: Yes: WNL Cardiovascular: Yes: WNL Respiratory: Yes: WNL ...Auscultate: Yes: Normoactive Bowel Sounds ...Palpate: Yes: Tenderness (Minimal epigastric tenderness, no RUQ tenderness.) ...Rectal Exam: Yes: Deferred Labs: CBC, BMP 06/14/17 06:45 06/14/17 06:45 INR, PTT INR 1.33 (0.82-1.09) H 06/13/17 09:10 Imaging - Results MRI: Report Reviewed, Image Reviewed Problem List - Problems (1) Choledocholithiasis with acute cholecystitis Code(s): K80.42 - CALCULUS OF BILE DUCT W ACUTE CHOLECYSTITIS W/O OBSTRUCTION Assessment/Plan Cholecystitis with common bile duct stones. With an brick molder hand, I explained the anatomy of the gallbladder, pancreas, and bile ducts to Ms Curry. I explained the need for ERCP to remove the bile duct stone(s). I discussed the risks of the procedure, including pancreatitis, infection, bleeding, and possible need for stenting. Janet Tirado acted as brick molder hand. Dr. Sea Duenas was present during part of the discussion and he also spoke to the patient in [place]. Consent obtained for ERCP, sphincterotomy, possible stent placement. - Renard Nguyen MD
--- NOTE | 2017-06-14 12:25 | CONSULT ---
- Consultation REQUESTING PROVIDER: Alvin BEVELING AND EDGING MACHINE OPERATOR CONSULT REQUEST: We have been asked to surgically evaluate this patient for abdominal pain as a result of cholelithiasi; possible choledocholithiasis PCP:Jenelle Esquivel HISTORY OF PRESENT ILLNESS: 31 y/o female presented w/n/v/epigastric and RUQ pain after previous recent ER visit and ts. for right sided pyelonephritis; she never had this before; she describes post prandial cilicky RUQ pain w/ associated nausea and vomiting; NOC; she denies dark urine; light stools; the rest of the hx. as noted elsewhere; she came to the ER where a w/u was initiated and she was admitted; hospital course to date reviewed. PMHx: none PSHx: none Home Medications Medication Instructions Recorded Sulfamethoxazole/Trimethoprim 1 tab PO BID #20 tablet 06/11/17 [Bactrim Ds -] Allergies Allergy/AdvReac Type Severity Reaction Status Date / Time No Known Allergies Allergy Verified 06/12/17 08:48 REVIEW OF SYSTEMS: none contributory PHYSICAL EXAM: GENERAL: Awake, alert, and fully oriented, in no acute distress. HEAD: Normal with no signs of trauma. EYES: sclera anicteric, conjunctiva clear. NECK: Normal ROM, supple without lymphadenopathy, JVD, or masses. ABDOMEN: Soft, minimal RUQ tenderness to palpation; not distended, normoactive bowel sounds, no guarding other than in the RUQ no rebound, no masses. No organomegaly. No hernias; no scars MUSCULOSKELETAL: Normal ROM at all joints. No bony deformities or tenderness. No CVA tenderness. UPPER EXTREMITIES: 2+ pulses, warm, well-perfused. No cyanosis. Cap refill <2 seconds. No peripheral edema. LOWER EXTREMITIES: 2+ pulses, warm, well-perfused. No calf tenderness. No peripheral edema. NEUROLOGICAL: Normal speech, gait not observed. PSYCH: Cooperative. Good eye contact. Appropriate mood and affect. SKIN: Warm, dry, normal turgor, no rashes or lesions noted. Vital Signs Temperature 98.4 F 06/14/17 08:42 Pulse Rate 72 06/14/17 08:42 Respiratory Rate 20 06/14/17 08:42 Blood Pressure 101/64 06/14/17 08:42 O2 Sat by Pulse Oximetry (%) 96 06/13/17 21:00 Lab Results WBC 6.6 K/mm3 (4.0-10.0) 06/14/17 06:45 RBC 3.66 M/mm3 (3.60-5.2) 06/14/17 06:45 Hgb 10.6 GM/dL (10.7-15.3) L 06/14/17 06:45 Hct 32.2 % (32.4-45.2) L 06/14/17 06:45 MCV 87.9 fl (80-96) 06/14/17 06:45 MCHC 32.9 g/dl (32.0-36.0) 06/14/17 06:45 RDW 12.9 % (11.6-15.6) 06/14/17 06:45 Plt Count 281 K/MM3 (134-434) 06/14/17 06:45 Sodium 135 mmol/L (136-145) L 06/14/17 06:45 Potassium 4.4 mmol/L (3.5-5.1) 06/14/17 06:45 Chloride 105 mmol/L (98-107) 06/14/17 06:45 Carbon Dioxide 18 mmol/L (21-32) L 06/14/17 06:45 Anion Gap 12 (8-16) 06/14/17 06:45 BUN 6 mg/dL (7-18) L 06/14/17 06:45 Creatinine 0.4 mg/dL (0.55-1.02) L 06/14/17 06:45 Random Glucose 64 mg/dL (74-106) L 06/14/17 06:45 Calcium 8.2 mg/dL (8.5-10.1) L 06/14/17 06:45 Blood Type B POSITIVE 06/13/17 10:03 Antibody Screen Negative 06/13/17 09:10 INR 1.33 (0.82-1.09) H 06/13/17 09:10 CT/US/MRI's/labs and remainder of w/u to date reviewed. IMP: cholelithiasis/choleldocholithiasis PLAN: GI Consult for evaluation for ERCP and then lap farrah; r/b/t/a's to lap farrah d/w the patient in [place] and she is amenable to same; surgery date pending ERCP and related procedures; would keep NPO and continue present tx. Sea Duenas MD FACS Visit type - Case Type Case Type: ED Admission - Emergency Emergency Visit: Yes ED Registration Date: 06/12/17 Care time: The patient presented to the Emergency Department on the above date and was hospitalized for further evaluation of their emergent condition. - New patient This patient is new to me today: Yes Date on this admission: 06/14/17 - Critical Care Critical Care patient: No
[2017-06-14] MEDS: DEXTROSE 5%-NORMAL SALINE 1,000 ML IV SCH (13:33)
--- NOTE | 2017-06-14 16:58 | PN ---
Physical Exam: SUBJECTIVE: Patient seen and examined at bedside. OBJECTIVE: Vital Signs Period Temp Pulse Resp BP Sys/Muhammad Pulse Ox Last 24 Hr 97.9 F-98.4 F 65-72 20-20 101-132/61-72 96-100 GENERAL: The patient is awake, alert, and fully oriented, in no acute distress. LUNGS: Breath sounds equal, clear to auscultation bilaterally, no wheezes, no crackles, no accessory muscle use. HEART: Regular rate and rhythm, S1, S2 without murmur, rub or gallop. ABDOMEN: RUQ and epigastric tenderness, normoactive bowel sounds, no guarding, no rebound EXTREMITIES: 2+ pulses, warm, well-perfused, no edema. NEUROLOGICAL: Cranial nerves II through XII grossly intact. Normal speech, steady gait. Laboratory Results - last 24 hr 06/14/17 06/14/17 06:45 06:45 WBC 6.6 RBC 3.66 Hgb 10.6 L Hct 32.2 L MCV 87.9 MCH 28.9 MCHC 32.9 RDW 12.9 Plt Count 281 MPV 8.5 Neutrophils % 53.3 Lymphocytes % 34.9 D Monocytes % 9.1 Eosinophils % 2.1 Basophils % 0.6 Sodium 135 L Potassium 4.4 Chloride 105 Carbon Dioxide 18 L Anion Gap 12 BUN 6 L Creatinine 0.4 L Creat Clearance w eGFR > 60 Random Glucose 64 L Calcium 8.2 L Phosphorus 2.7 Magnesium 2.1 Total Bilirubin 1.2 H AST 46 H D ALT 134 H D Alkaline Phosphatase 98 Total Protein 7.3 Albumin 3.3 L Active Medications Generic Name Dose Route Start Last Admin Trade Name [place] PRN Reason Stop Dose Admin Acetaminophen 650 mg 06/12/17 23:03 06/12/17 23:47 Tylenol Suppository - [place] 650 mg Q4H PRN Administration FEVER OR PAIN Ceftriaxone Sodium 1 gm/ 50 mls @ 100 mls/hr 06/12/17 14:04 06/14/17 09:43 Dextrose IVPB 100 mls/hr DAILY THUY Administration Dextrose/Sodium Chloride 1,000 mls @ 125 mls/hr 06/14/17 11:00 06/14/17 13:33 D5-Ns - IV 125 mls/hr ASDIR THUY Administration Morphine Sulfate 2 mg 06/14/17 11:13 06/14/17 13:28 Morphine Injection - IVPUSH 2 mg Q4H PRN Administration PAIN Ondansetron HCl 4 mg 06/12/17 12:43 06/14/17 08:35 Zofran Injection IVPB 4 mg Q6H PRN Administration NAUSEA ASSESSMENT/PLAN: 31 year-old female with a no significant PMH. Admitted for suspected choledocholilithiasis and has acute right pyelonephritis. Acute right pyelonephritis E.coli UTI --afebrile, no leukocytosis --continue ceftriaxone (day #3) Cholelithiasis Choledocholelithiasis --06/12 US shows contracted gallbladder with multiple gallstones --06/13 MRCP shows numerous gallstones almost completely opacifying gallbladder; 0.5 x 0.3 intraluminal focus upper aspect of CBD, stone v. motion artifact? spoke with Dr. dAames, need repeat MRCP --06/13 MRCP (repeat): cholelithiasis with gallstone at junction of gallbladder neck and cystic duct; gallbladder wall thickening and pericholecystic fluid; at least 2 intraluminal filling defects within the CD likely choledocholelithiasis --LFTs trending down --plan is for ERCP on 06/15 and cholecystectomy on 06/16 --GI and surgery following F/E/N Fluids: D5NS @ 125mL/hr Electrolytes: replete as indicated Nutrition: NPO DVT prophylaxis: hold chemical prophylaxis for procedures; SCDs; oob, ambulation Dispo: continues to require inpatient care. Full code. Visit type - Emergency Visit Emergency Visit: Yes ED Registration Date: 06/12/17 Care time: The patient presented to the Emergency Department on the above date and was hospitalized for further evaluation of their emergent condition. - New Patient This patient is new to me today: No - Critical Care Critical Care patient: No
[2017-06-15] MEDS: DEXTROSE 5%-NORMAL SALINE 1,000 ML IV SCH ×2 (00:44→15:36)
[2017-06-15] MEDS: morphine CARPU-JECT 2 MG/1 ML DISP.SYRIN IVPUSH PRN ×2 (00:51→19:34)
[2017-06-15 07:50] LABS: BASOPHIL 0.8 % (0-2.0); EOSINOPHIL 2.3 % (0-4.5); MCH 29.1 pg (25.7-33.7); MCHC 33.6 g/dl (32.0-36.0); MEAN CELL VOLUME 86.6 fl (80-96); MEAN PLT VOLUME 7.9 fl (7.5-11.1); NEUTROPHILS 48.4 % (42.8-82.8); PLATELET COUNT 300 K/MM3 (134-434); RDW 12.4 % (11.6-15.6); WHITE BLOOD COUNT 5.6 K/mm3 (4.0-10.0)
[2017-06-15 08:11] LABS: ALBUMIN 2.9 g/dl (3.4-5.0); ANION GAP 7 (8-16); CALCIUM 8.3 mg/dL (8.5-10.1); CO2 24 mmol/L (21-32); GLUCOSE,RANDOM 118 mg/dL (74-106); MAGNESIUM 2.1 mg/dL (1.8-2.4)
[2017-06-15 08:15] LABS: ALK PHOS 82 U/L (45-117); BILIRUBIN,TOTAL 0.8 mg/dL (0.2-1.0); CREATININE 0.4 mg/dL (0.55-1.02); PHOSPHOROUS 2.5 mg/dL (2.5-4.9); SGOT/AST 19 U/L (15-37); SGPT/ALT 90 U/L (12-78); TOT PROT 6.5 g/dl (6.4-8.2)
[2017-06-15] MEDS ORDERED: PHYTONADIONE 10 MG/1 ML AMP IM ONE ×2 (08:45→10:00)
[2017-06-15] MEDS ORDERED: INDOMETHACIN 50 MG RECTAL SUPPOSITORY PR ONE (09:00)
[2017-06-15] MEDS ORDERED: DEXTROSE 5%-WATER - 50 ML IVPB ONE (09:24)
[2017-06-15] MEDS ORDERED: cefTRIAXone SODIUM 1 GM VIAL ONE (09:24)
[2017-06-15] MEDS: CEFTRIAXONE 1 GM in DEXTROSE 5%-WATER - 50 ML IVPB SCH (09:33)
--- NOTE | 2017-06-15 09:49 | SPA.PREOP ---
- PRE-OP NOTE Dx: Acute cholecystitis/lithiasis Planned Procedure: Lap farrah possible open Surgeon: Sea arenas Consent: To be obtained by surgeon after risks, benefits and alternatives explained to patient. Last Vital Signs Temp Pulse Resp BP Pulse Ox 98.1 F 61 20 107/67 100 06/15/17 06:00 06/15/17 06:00 06/15/17 06:00 06/15/17 06:00 06/14/17 21:00 Lab Results WBC 5.6 K/mm3 (4.0-10.0) 06/15/17 06:45 RBC 3.51 M/mm3 (3.60-5.2) L 06/15/17 06:45 Hgb 10.2 GM/dL (10.7-15.3) L 06/15/17 06:45 Hct 30.4 % (32.4-45.2) L 06/15/17 06:45 MCV 86.6 fl (80-96) 06/15/17 06:45 MCHC 33.6 g/dl (32.0-36.0) 06/15/17 06:45 RDW 12.4 % (11.6-15.6) 06/15/17 06:45 Plt Count 300 K/MM3 (134-434) 06/15/17 06:45 Sodium 138 mmol/L (136-145) 06/15/17 06:45 Potassium 4.1 mmol/L (3.5-5.1) 06/15/17 06:45 Chloride 107 mmol/L (98-107) 06/15/17 06:45 Carbon Dioxide 24 mmol/L (21-32) D 06/15/17 06:45 Anion Gap 7 (8-16) L 06/15/17 06:45 BUN 4 mg/dL (7-18) L D 06/15/17 06:45 Creatinine 0.4 mg/dL (0.55-1.02) L 06/15/17 06:45 Random Glucose 118 mg/dL (74-106) H D 06/15/17 06:45 Calcium 8.3 mg/dL (8.5-10.1) L 06/15/17 06:45 Blood Type B POSITIVE 06/13/17 10:03 Antibody Screen Negative 06/13/17 09:10 INR 1.33 (0.82-1.09) H 06/13/17 09:10 Problem List - Problems (1) Choledocholithiasis with acute cholecystitis Assessment/Plan: 1. Make NPO after midnight except po meds 2. GI/DVT PPX 3. Medical optimization / clearance Code(s): K80.42 - CALCULUS OF BILE DUCT W ACUTE CHOLECYSTITIS W/O OBSTRUCTION Visit type - Case Type Case Type: ED Admission - Emergency Emergency Visit: Yes ED Registration Date: 06/12/17 Care time: The patient presented to the Emergency Department on the above date and was hospitalized for further evaluation of their emergent condition. - New patient This patient is new to me today: Yes Date on this admission: 06/15/17
[2017-06-15] MEDS ORDERED: MIDAZOLAM HCL 2 MG/2 ML SINGLE DOSE VIAL ONE (12:05)
[2017-06-15] MEDS ORDERED: PROPOFOL 20 ML ONE (12:05)
[2017-06-15] MEDS ORDERED: ONDANSETRON 4 MG/2 ML VIAL ONE (12:05)
[2017-06-15] MEDS ORDERED: NEOSTIGMINE METHYLSULFATE 0.5 MG/ML - 10 ML MDV ONE (12:08)
[2017-06-15] MEDS ORDERED: ROCURONIUM BROMIDE 50 MG/5 ML VIAL ONE (12:08)
[2017-06-15] MEDS ORDERED: GLYCOPYRROLATE 0.2 MG/1 ML VIAL ONE ×3 (12:08)
--- NOTE | 2017-06-15 13:29 | PN ---
Progress Note (short form) - Note Progress Note: GI Procedure NOte: Please see ERCP report. Despite attempting a small precut sphincterotomy with the sphincterotome the bile duct could not be accessed. Given the visual bile draining and normalizing LFTs I suspect that the stones have passed and will obtain an MRCP. I discussed the case with Dr Duenas. Despite the fact that no contrast was injected will need to observe for pancreatitis.
[2017-06-15] MEDS ORDERED: LACTATED RINGERS SOLUTION 1,000 ML IV SCH ×2 (13:45→19:45)
[2017-06-15] MEDS: METRONIDAZOLE 500 MG PREMIXED 100 ML IVPB SCH ×2 (15:38→17:25)
--- NOTE | 2017-06-15 16:33 | PN ---
Physical Exam: SUBJECTIVE: Patient seen at bedside. OBJECTIVE: Vital Signs Period Temp Pulse Resp BP Sys/Muhammad Pulse Ox Last 24 Hr 98.0 F-98.6 F 60-95 18-20 106-116/59-78 99-100 GENERAL: The patient is awake, alert, and fully oriented, in no acute distress. HEAD: Normal with no signs of trauma. EYES: PERRL, extraocular movements intact, sclera anicteric, conjunctiva clear. No ptosis. ENT: Ears normal, nares patent, oropharynx clear without exudates, moist mucous membranes. NECK: Trachea midline, full range of motion, supple. NEUROLOGICAL: Normal speech, gait not observed. PSYCH: Normal mood, normal affect. SKIN: Warm, dry, normal turgor, no rashes or lesions noted Laboratory Results - last 24 hr 06/15/17 06/15/17 06:45 06:45 WBC 5.6 RBC 3.51 L Hgb 10.2 L Hct 30.4 L MCV 86.6 MCH 29.1 MCHC 33.6 RDW 12.4 Plt Count 300 MPV 7.9 Neutrophils % 48.4 Lymphocytes % 37.8 Monocytes % 10.7 H Eosinophils % 2.3 Basophils % 0.8 Sodium 138 Potassium 4.1 Chloride 107 Carbon Dioxide 24 D Anion Gap 7 L BUN 4 L D Creatinine 0.4 L Creat Clearance w eGFR > 60 Random Glucose 118 H D Calcium 8.3 L Phosphorus 2.5 Magnesium 2.1 Total Bilirubin 0.8 D AST 19 D ALT 90 H D Alkaline Phosphatase 82 Total Protein 6.5 Albumin 2.9 L Active Medications Generic Name Dose Route Start Last Admin Trade Name Timothyq PRN Reason Stop Dose Admin Acetaminophen 650 mg 06/12/17 23:03 06/12/17 23:47 Tylenol Suppository - CT 650 mg Q4H PRN Administration FEVER OR PAIN Dextrose/Sodium Chloride 1,000 mls @ 125 mls/hr 06/14/17 11:00 06/15/17 15:36 D5-Ns - IV Not Given ASDIR THUY Levofloxacin 100 mls @ 100 mls/hr 06/16/17 06:00 Levaquin 500 Mg Premixed Ivpb - IVPB DAILY@0600 THUY Metronidazole 100 mls @ 100 mls/hr 06/15/17 14:15 06/15/17 15:38 Flagyl 500mg Premixed Ivpb - IVPB 100 mls/hr Q8H-IV THUY Administration Lactated Ringer's 1,000 mls @ 250 mls/hr 06/15/17 13:45 06/15/17 15:38 Lactated Ringers Solution IV 06/15/17 19:45 250 mls/hr ASDIR THUY Administration Lactated Ringer's 1,000 mls @ 175 mls/hr 06/15/17 19:45 Lactated Ringers Solution IV 06/16/17 02:40 ASDIR THUY Lactated Ringer's 1,000 mls @ 150 mls/hr 06/16/17 02:45 Lactated Ringers Solution IV 06/16/17 08:45 ASDIR THUY Lactated Ringer's 1,000 mls @ 125 mls/hr 06/16/17 08:45 Lactated Ringers Solution IV ASDIR THUY Morphine Sulfate 2 mg 06/14/17 11:13 06/15/17 00:51 Morphine Injection - IVPUSH 2 mg Q4H PRN Administration PAIN ASSESSMENT/PLAN: Patient is a 31 year-old female with a no significant past medical history. She was admitted for suspected choledocholilithiasis and also found to have an acute right pyelonephritis. Renal: Acute right pyelonephritis A/P: 06/10/2017 Urine culture +ecoli Blood cultures negative On Ceftriaxone Remains afebrile, no leukocytosis Monitor labs, vitals Pain management with morphine GI: Cholelithiasis/Choledocholelithiasis A/P: Ultrasound imaging shows contracted gallbladder with muliple gall stones MRCP shows cholelithiasis with gallstone at junction of gallbladder neck and cystic duct; gallbladder wall thickening and pericholecystic fluid; at least 2 intraluminal filling defects within the CD likely choledocholelithiasis AST/ALT now trending down On Flagyl and Levaquin Had ERCP today, notes reviewed, will have MRCP tonight Possible lap farrah in a.m. GI and surgery following F.E.N. Fluids: D5 NS @ 125/cc/hr Electrolytes: monitor Nutrition: Clears tonight, then NPO for possible lab farrah Prophylaxis: DVT: SCDS bilaterally, ambulation GI: Protonix Disposition: continues to require inpatient care. Full code. Visit type - Emergency Visit Emergency Visit: Yes ED Registration Date: 06/12/17 Care time: The patient presented to the Emergency Department on the above date and was hospitalized for further evaluation of their emergent condition. - New Patient This patient is new to me today: Yes Date on this admission: 06/16/17 - Critical Care Critical Care patient: No - Discharge Referral Referred to [facility] No
[2017-06-15] MEDS ORDERED: ONDANSETRON 4 MG/2 ML VIAL IVPB PRN (16:34)
--- NOTE | 2017-06-15 16:43 | PN ---
Progress Note, Physician History of Present Illness: Awake, alert C/O moderate RUQ pain, nausea No vomiting/ diarrhea No c/o fever/ chills - Current Medication List Current Medications: Active Medications Acetaminophen (Tylenol Suppository -) 650 mg AR Q4H PRN PRN Reason: FEVER OR PAIN Last Admin: 06/12/17 23:47 Dose: 650 mg Dextrose/Sodium Chloride (D5-Ns -) 1,000 mls @ 125 mls/hr IV ASDIR THUY Last Admin: 06/15/17 15:36 Dose: Not Given Levofloxacin (Levaquin 500 Mg Premixed Ivpb -) 100 mls @ 100 mls/hr IVPB DAILY@ 0600 THUY Metronidazole (Flagyl 500mg Premixed Ivpb -) 100 mls @ 100 mls/hr IVPB Q8H-IV THUY Last Admin: 06/15/17 15:38 Dose: 100 mls/hr Lactated Ringer's (Lactated Ringers Solution) 1,000 mls @ 250 mls/hr IV ASDIR THUY Stop: 06/15/17 19:45 Last Admin: 06/15/17 15:38 Dose: 250 mls/hr Lactated Ringer's (Lactated Ringers Solution) 1,000 mls @ 175 mls/hr IV ASDIR THUY Stop: 06/16/17 02:40 Lactated Ringer's (Lactated Ringers Solution) 1,000 mls @ 150 mls/hr IV ASDIR THUY Stop: 06/16/17 08:45 Lactated Ringer's (Lactated Ringers Solution) 1,000 mls @ 125 mls/hr IV ASDIR THUY Morphine Sulfate (Morphine Injection -) 2 mg IVPUSH Q4H PRN PRN Reason: PAIN Last Admin: 06/15/17 00:51 Dose: 2 mg Ondansetron HCl (Zofran Injection) 4 mg IVPB Q6H PRN PRN Reason: NAUSEA - Objective Vital Signs: Vital Signs Temperature 98.6 F 06/15/17 14:33 Pulse Rate 78 06/15/17 14:33 Respiratory Rate 18 06/15/17 14:33 Blood Pressure 116/78 06/15/17 14:33 O2 Sat by Pulse Oximetry (%) 99 06/15/17 14:20 Constitutional: Yes: No Distress Eyes: Yes: Conjunctiva Clear Cardiovascular: Yes: Regular Rate and Rhythm, S1, S2 Respiratory: Yes: CTA Bilaterally Gastrointestinal: Yes: Normal Bowel Sounds, Soft, Tenderness, Other (+mild RUQ tenderness) Edema: No Labs: CBC, BMP 06/15/17 06:45 06/15/17 06:45 INR, PTT INR 1.33 (0.82-1.09) H 06/13/17 09:10 Assessment/Plan Choledocholithiasis R/O Biliary sepsis Continue empiric coverage, biliary pathogens with levaquin/ flagyl
[2017-06-15] MEDS: ACETAMINOPHEN 650 MG SUPP.RECT PR PRN (21:09)
[2017-06-16] MEDS: METRONIDAZOLE 500 MG PREMIXED 100 ML IVPB SCH ×3 (01:39→17:50)
[2017-06-16] MEDS ORDERED: LACTATED RINGERS SOLUTION 1,000 ML IV SCH ×3 (02:45→17:18)
[2017-06-16] MEDS: morphine CARPU-JECT 2 MG/1 ML DISP.SYRIN IVPUSH PRN (03:32)
[2017-06-16] MEDS ORDERED: LEVOFLOXACIN 500 MG IVPB 100 ML IVPB SCH (06:00)
[2017-06-16 07:17] LABS: BASOPHIL 0.7 % (0-2.0); EOSINOPHIL 2.5 % (0-4.5); MCH 29.6 pg (25.7-33.7); MCHC 34.3 g/dl (32.0-36.0); MEAN CELL VOLUME 86.1 fl (80-96); MEAN PLT VOLUME 7.8 fl (7.5-11.1); NEUTROPHILS 53.2 % (42.8-82.8); PLATELET COUNT 311 K/MM3 (134-434); RDW 12.8 % (11.6-15.6); WHITE BLOOD COUNT 6.9 K/mm3 (4.0-10.0)
[2017-06-16 07:41] LABS: ALBUMIN 3.1 g/dl (3.4-5.0); AMYLASE 63 U/L (25-115); ANION GAP 11 (8-16); BILIRUBIN,DIRECT 0.3 mg/dL (0.0-0.2); CALCIUM 8.6 mg/dL (8.5-10.1); CO2 24 mmol/L (21-32); CREATININE 0.4 mg/dL (0.55-1.02); GLUCOSE,RANDOM 90 mg/dL (74-106); SGOT/AST 29 U/L (15-37); SGPT/ALT 103 U/L (12-78)
[2017-06-16 07:43] LABS: ALK PHOS 119 U/L (45-117); BILIRUBIN,TOTAL 0.9 mg/dL (0.2-1.0); C-REACTIVE PROTEIN 1.8 MG/DL (0.00-0.3); TOT PROT 6.4 g/dl (6.4-8.2)
[2017-06-16] MEDS ORDERED: PROPOFOL 20 ML ONE (08:48)
[2017-06-16] MEDS ORDERED: SUCCINYLCHOLINE CHLORIDE 200 MG/10 ML VIAL ONE (08:48)
[2017-06-16] MEDS ORDERED: MIDAZOLAM HCL 2 MG/2 ML SINGLE DOSE VIAL ONE (08:49)
--- NOTE | 2017-06-16 09:18 | PN ---
Physical Exam: SUBJECTIVE: Patient seen and examined at the bedside. She denies any pain, discomfort. States she could not tolerate the diet overnight secondary to nausea. OBJECTIVE: AST/ALT trending up For possible lap/farrah today after MRCP read, however procedure cancelled secondary to CBD/CHD stones that persist precluding lap farrah today Patient for transfer to [facility], accepting physican Dr. Dom Ochoa. Vital Signs Period Temp Pulse Resp BP Sys/Muhammad Pulse Ox Last 24 Hr 98.0 F-98.6 F 61-95 18-20 104-121/59-78 99-100 GENERAL: The patient is awake, alert, and fully oriented, in no acute distress. HEAD: Normal with no signs of trauma. EYES: PERRL, extraocular movements intact, sclera anicteric, conjunctiva clear. No ptosis. ENT: Ears normal, nares patent, oropharynx clear without exudates, moist mucous membranes. NECK: Trachea midline, full range of motion, supple. LUNGS: Breath sounds equal, clear to auscultation bilaterally, no wheezes, no crackles, no accessory muscle use. HEART: Regular rate and rhythm, S1, S2 without murmur, rub or gallop. ABDOMEN: Soft, nontender, nondistended, normoactive bowel sounds, no guarding, no rebound, no hepatosplenomegaly, no masses. EXTREMITIES: no edema. NEUROLOGICAL: Normal speech, gait not observed. PSYCH: Normal mood, normal affect. SKIN: Warm, dry, normal turgor, no rashes or lesions noted Laboratory Results - last 24 hr 06/16/17 06/16/17 06:30 06:30 WBC 6.9 RBC 3.54 L Hgb 10.5 L Hct 30.5 L MCV 86.1 MCH 29.6 MCHC 34.3 RDW 12.8 Plt Count 311 MPV 7.8 Neutrophils % 53.2 Lymphocytes % 36.1 Monocytes % 7.5 Eosinophils % 2.5 Basophils % 0.7 Sodium 139 Potassium 4.3 Chloride 104 Carbon Dioxide 24 Anion Gap 11 BUN 3 L D Creatinine 0.4 L Random Glucose 90 D Calcium 8.6 Total Bilirubin 0.9 Direct Bilirubin 0.3 H AST 29 D ALT 103 H Alkaline Phosphatase 119 H D C-Reactive Protein 1.8 H Total Protein 6.4 Albumin 3.1 L Total Amylase 63 Lipase 249 Active Medications Generic Name Dose Route Start Last Admin Trade Name Freq PRN Reason Stop Dose Admin Acetaminophen 650 mg 06/12/17 23:03 06/15/17 21:09 Tylenol Suppository - SC 650 mg Q4H PRN Administration FEVER OR PAIN Dextrose/Sodium Chloride 1,000 mls @ 125 mls/hr 06/14/17 11:00 06/15/17 15:36 D5-Ns - IV Not Given ASDIR THUY Levofloxacin 100 mls @ 100 mls/hr 06/16/17 06:00 06/16/17 05:18 Levaquin 500 Mg Premixed Ivpb - IVPB 100 mls/hr DAILY@0600 THUY Administration Metronidazole 100 mls @ 100 mls/hr 06/15/17 14:15 06/16/17 09:05 Flagyl 500mg Premixed Ivpb - IVPB 100 mls/hr Q8H-IV THUY Administration Lactated Ringer's 1,000 mls @ 125 mls/hr 06/16/17 08:45 06/16/17 09:05 Lactated Ringers Solution IV 125 mls/hr ASDIR THUY Administration Morphine Sulfate 2 mg 06/14/17 11:13 06/16/17 03:32 Morphine Injection - IVPUSH 2 mg Q4H PRN Administration PAIN Ondansetron HCl 4 mg 06/15/17 16:34 06/15/17 17:39 Zofran Injection IVPB 4 mg Q6H PRN Administration NAUSEA ASSESSMENT/PLAN: Patient is a 31 year-old female with a no significant past medical history. She was admitted for suspected choledocholilithiasis and also found to have an acute right pyelonephritis. Imaging: Ultrasound imaging shows contracted gallbladder with multiple gall stones MRCP shows cholelithiasis with gallstone at junction of gallbladder neck and cystic duct; gallbladder wall thickening and pericholecystic fluid; at least 2 intraluminal filling defects within the CBD likely choledocholelithiasis Abdomen MRI: choledocholithiasis w/o ductal dilatation - interval development of distal CBD, cholelithasis w/MRI evidence Renal: Acute right pyelonephritis A/P: 06/10/2017 Urine culture +ecoli Blood cultures negative Was on Ceftriaxone daily, now on Flagyl and Levaquin as per ID Remains afebrile, no leukocytosis Monitor labs, vitals Pain management with morphine GI: Cholelithiasis/Choledocholelithiasis, acute A/P: Patient was for lap farrah today, but OR cancelled for today as follow up MRCP shows CBD/CHD stones which precluded the scheduled lap farrah procedure As per surgery, the ducts will need to be cleared prior to surgery Patient for transfer to [facility] today for ERCP with accepting physician Dr. Dom Ochoa AST/ALT elevated today GI and surgery following F.E.N. Fluids: LR @ 125/cc/hr Electrolytes: monitor Nutrition: full liquid diet Prophylaxis: DVT: SCDS bilaterally, ambulation GI: Protonix Disposition: Transfer to [facility]. Accepting physician Dr. Dom Ochoa MD . Full code. Visit type - Emergency Visit Emergency Visit: Yes ED Registration Date: 06/12/17 Care time: The patient presented to the Emergency Department on the above date and was hospitalized for further evaluation of their emergent condition. - New Patient This patient is new to me today: No - Critical Care Critical Care patient: No - Discharge Referral Referred to [facility] No
--- NOTE | 2017-06-16 10:12 | PN ---
Progress Note (short form) - Note Progress Note: Attending Surgeon OR cancelled for today; results of attempted ERCP done yesterday d/w Dr. Munroe ; f/u MRCP done last PM d/w Dr. Roa; CBD/CHD stones persist precluding doing lap farrah today as the duct will need to cleared prior to surgery which can then be done on an elective basis; if lap farrah is done today and then ERCP cannot be done there is a risk of cystic duct leak and related possible sequlae ; therefore considertion for xfer to a tertiary care center for ERCP should be considered. Sea Duenas MD FACS
[2017-06-16 18:27] VITALS: BP 108/51; PULSE 70; TEMP 98
[2017-06-17] MEDS ORDERED: PANTOPRAZOLE SODIUM 40 MG in SODIUM CHLORIDE 100 ML IVPB SCH (10:00)
== END 2017-06-16 19:25 | disposition short-term general hospital (02) ==
LOC: JER 08:44 → JERFT 08:44 → JERBED 12:23 → J8W 15:14
PROVIDERS: ADMIT Internal Medicine; ATTEND Nurse Practitioner Family
PROC: 0FC98ZZ Extirpation of Matter from Common Bile Duct, Via Natural or Artificial Opening Endoscopic (ICD-10-PCS; principal; 2017-06-15 12:00)
DX: K80.42 Calculus of bile duct with acute cholecystitis without obstruction (principal); N10 Acute pyelonephritis; B96.29 Other Escherichia coli [E. coli] as the cause of diseases classified elsewhere
CPT/HCPCS: 36415; 74181-TC; 74330-TC; 76705-TC; 80048; 80053; 80076; 81003; 81015; 82150; 83690; 83735; 84100; 84703; 85025; 85610; 85730; 86140; 86850; 86900; 86901; 87040; 87086; 93005; 93010; 99283-25

== ENCOUNTER 2019-02-20 14:26 | Emergency (ER) | payer OTHER ==
[2019-02-20 14:37] VITALS: BP 96/56; PULSE 75; TEMP 98.3; BMI 25.0
--- NOTE | 2019-02-20 15:02 | PDOC ---
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 She states the chest pain is worse when she is breathing. She feels she can't take a full breath although patient appears very comfortable and is not hypoxic. Patient denies any recent trauma, leg swelling, abdominal pain. GENERAL/CONSTITUTIONAL: No fever, weakness. dizziness HEAD, EYES, EARS, NOSE AND THROAT: No change in vision. No ear pain or discharge. No sore throat. CARDIOVASCULAR: No chest pain RESPIRATORY: No shortness of breath or cough GASTROINTESTINAL: No pain, nausea, vomiting, diarrhea or constipation GENITOURINARY: No dysuria MUSCULOSKELETAL: No neck or back pain SKIN: No rash NEUROLOGIC: No headache, vertigo, loss of consciousness, or loss of sensation. GENERAL: The patient is awake, alert, and fully oriented, in no acute distress. HEAD: Normal with no signs of trauma. EYES: Pupils equal, round and reactive to light, sclera anicteric, conjunctiva clear. ENT: pharynx: no erythema, no exudate, uvula midline NECK: supple CHEST: clear, nontender, rr ABD: soft, nontender EXTREMITIES: Normal range of motion, no edema. NEUROLOGICAL: Normal speech, normal gait. Cranial nerves II through XII grossly intact, no focal abnormalities SKIN: Warm, Dry 02/20/19 16:51 Past History - Past Medical History Allergies/Adverse Reactions: Allergies Allergy/AdvReac Type Severity Reaction Status Date / Time No Known Allergies Allergy Verified 02/20/19 14:36 Home Medications: Ambulatory Orders Acetaminophen Suppository [Tylenol .Suppository -] 650 mg MT Q4H PRN #0 supp.rect 06/16/17 Lactated Ringers Solution 1,000 ml IV ASDIR #1 bag 06/16/17 Ondansetron Injection [Zofran Injection] 4 mg IVPB Q6H PRN #0 vial 10/10/17 Ondansetron Injection [Zofran Injection] 4 mg IVPB Q6H PRN #0 vial 06/16/17 Pantoprazole Sodium [Protonix IV] 40 mg IVPB DAILY vial 06/16/17 levoFLOXacin 500 MG IVPB [Levaquin 500 mg Premixed Ivpb -] 100 ml IVPB DAILY@ 0600 #10 bag 06/16/17 metroNIDAZOLE PREMIXED IVPB [Flagyl 250Mg Premixed Ivpb -] 500 mg IVPB Q8HIV # 20 mg 06/16/17 Albuterol Sulfate Inhaler - [Ventolin HFA Inhaler -] 2 inh PO Q4H PRN #1 inh COPD: No - Suicide/Smoking/Psychosocial Hx Smoking History: Never smoked Have you smoked in the past 12 months: No Hx Alcohol Use: No Drug/Substance Use Hx: No Substance Use Type: None *Physical Exam - Vital Signs Last Vital Signs Temp Pulse Resp BP Pulse Ox 98.3 F 75 18 96/56 L 99 02/20/19 14:34 02/20/19 14:34 02/20/19 14:34 02/20/19 14:34 02/20/19 14:34 ED Treatment Course - LABORATORY CBC & Chemistry Diagram: 02/20/19 15:21 02/20/19 15:21 Medical Decision Making - Medical Decision Making 02/20/19 15:29 33-year-old female with no medical history, does not take medication including contraceptives, no recent travel, no family history of PE or DVT with 1 day of frontal headache at the temples and chest pain, worse with breathing. Patient's EKG is normal, no tachycardia, no increased respiratory rate, no fever, no hypoxia. perc negative. Patient denies history of asthma. Patient denies , will confirm, we'll get basic labs, d-dimer, give DuoNeb, chest x- ray and reassess. 02/20/19 16:49 pt is not , chest x-ray is negative, patient feels better after DuoNeb, labs are stable, d-dimer is negative, headache is gone. No indication for further workup. We'll send patient home with supportive care, inhaler and have her follow-up with her doctor. Discussed issues, findings, results, applicable medications and treatments and follow-up. All these were understood and all questions were answered *DC/Admit/Observation/Transfer Diagnosis at time of Disposition: Reactive airway disease that is not asthma Headache Qualifiers: Headache type: unspecified Headache chronicity pattern: episodic headache Intractability: not intractable Qualified Code(s): R51 - Headache - Discharge Dispostion Disposition: HOME Condition at time of disposition: Stable - Prescriptions Prescriptions: Albuterol Sulfate Inhaler - [Ventolin HFA Inhaler -] 2 inh PO Q4H PRN #1 inh PRN Reason: Dyspnea - Referrals - Patient Instructions Additional Instructions: Drink 2-3 L of water daily Take Tylenol 650 mg every 4 hours or Motrin 600 mg every 6 hours for fever and pain You can use inhaler 2 puffs every 4-6 hours as needed for shortness of breath Return to the nearest ER if short of breath, unable to swallow or feeling sicker , of your headache, vomiting or feeling sicker Followup with your doctor in one to 2 days Beber 2-3 L de agua diariamente Chinle Tylenol 650 mg cada 4 horas o Motrin 600 mg cada 6 horas para la fiebre y el dolor. Puede usar inhalador 2 inhalaciones cada 4-6 horas segn sea necesario para la falta de aliento Regrese a la chayito de emergencias ms cercana si tiene dificultad para respirar, no puede tragar o se siente ms enfermo, tiene dolor de yvette, tiene vmitos o se siente ms enfermo. Seguimiento con collins mdico en 1 a 2 eller. - Post Discharge Activity
[2019-02-20] MEDS ORDERED: ALBUTEROL SO4 2.5/IPRATROPIUM 0.5 INH SOL 3 ML VIAL.NEB. NEB ONE ×3 (15:19→15:29)
[2019-02-20] MEDS ORDERED: IBUPROFEN 600 MG TABLET (FP) PO ONE ×2 (15:19→15:26)
[2019-02-20 15:35] LABS: HEMATOCRIT 37.1 % (32.4-45.2); HEMOGLOBIN 12.6 GM/dL (10.7-15.3); MCH 30.2 pg (25.7-33.7); MEAN PLT VOLUME 7.8 fl (7.5-11.1); PLATELET COUNT 304 K/MM3 (134-434); RBC 4.17 M/mm3 (3.60-5.2); RDW 12.6 % (11.6-15.6); WHITE BLOOD COUNT 7.8 K/mm3 (4.0-10.0)
[2019-02-20 15:47] LABS: BLOOD UREA NITROGEN 10.2 mg/dL (7-18); CALCIUM 9.2 mg/dL (8.5-10.1); CREATININE 0.8 mg/dL (0.55-1.3); POTASSIUM 3.7 mmol/L (3.5-5.1)
--- NOTE | 2019-02-24 12:32 | EKG ---
Test Reason : Blood Pressure : / mmHG Vent. Rate : 072 BPM Atrial Rate : 072 BPM P-R Int : 176 ms QRS Dur : 088 ms QT Int : 392 ms P-R-T Axes : 051 033 040 degrees QTc Int : 429 ms NORMAL SINUS RHYTHM NORMAL ECG WHEN COMPARED WITH ECG OF 12-JUN-2017 13:08, MINIMAL CRITERIA FOR INFERIOR INFARCT ARE NO LONGER PRESENT T WAVE INVERSION LESS EVIDENT IN ANTERIOR LEADS Confirmed by MANUEL DIEGO, PETR ([id number]) on 02/24/2019 12:32:11 PM Referred By: Confirmed By:PETR JACKSON MD
== END 2019-02-20 16:59 | disposition home or self-care (01) ==
LOC: JERFT 14:26
PROC: 3E0F7GC Introduction of Other Therapeutic Substance into Respiratory Tract, Via Natural or Artificial Opening (ICD-10-PCS; principal; 2019-02-20)
DX: R09.89 Other specified symptoms and signs involving the circulatory and respiratory systems (principal); R51 Headache
CPT/HCPCS: 36415; 71046-TC-FY; 80048; 84703; 85027; 85379; 93005; 93010; 94640; 99281-25

== ENCOUNTER 2019-05-30 10:31 | Emergency (ER) | payer OTHER ==
[2019-05-30 10:43] VITALS: BP 102/59; PULSE 79; TEMP 98.6; BMI 27.4
[2019-05-30] MEDS ORDERED: ACETAMINOPHEN 500 MG TABLET (FP) PO ONE (10:49)
[2019-05-30 11:48] LABS: BASO % 0.6 % (0-2.0); EOS % 2.9 % (0-4.5); HEMATOCRIT 33.1 % (32.4-45.2); HEMOGLOBIN 11.1 GM/dL (10.7-15.3); LYMPH % 33.8 % (8-40); MCH 29.9 pg (25.7-33.7); MCHC 33.6 g/dl (32.0-36.0); MEAN CELL VOLUME 88.8 fl (80-96); MEAN PLT VOLUME 8.4 fl (7.5-11.1); MONO % 7.4 % (3.8-10.2); NEUT % 55.3 % (42.8-82.8); PLATELET COUNT 297 K/MM3 (134-434); RBC 3.73 M/mm3 (3.60-5.2); WHITE BLOOD COUNT 6.2 K/mm3 (4.0-10.0)
[2019-05-30 11:48] LABS: PH,URINE 5.5 (5.0-8.0); URINE APPEARANCE CLOUDY; URINE BILIRUBIN NEGATIVE (NEGATIVE); URINE COLOR YELLOW; URINE GLUCOSE (UA) NEGATIVE (NEGATIVE); URINE KETONE NEGATIVE (NEGATIVE); URINE LEUK ESTERASE NEGATIVE (NEGATIVE); URINE NITRITE NEGATIVE (NEGATIVE); URINE PROTEIN NEGATIVE (NEGATIVE)
[2019-05-30] MEDS ORDERED: ACETAMINOPHEN 325 MG TABLET (FP) ONE (12:06)
[2019-05-30 12:18] LABS: ALBUMIN 3.5 g/dl (3.4-5.0); BILIRUBIN,TOTAL 0.9 mg/dL (0.2-1); BLOOD UREA NITROGEN 8.1 mg/dL (7-18); CALCIUM 9.1 mg/dL (8.5-10.1); CREATININE 0.6 mg/dL (0.55-1.3); POTASSIUM 4.3 mmol/L (3.5-5.1); TOT PROT 6.8 g/dl (6.4-8.2)
--- NOTE | 2019-05-30 13:23 | PDOC ---
History of Present Illness - General Chief Complaint: Vaginal Bleeding Stated Complaint: ABD PAIN Time Seen by Provider: 05/30/19 10:47 History Source: Patient Exam Limitations: No Limitations - History of Present Illness Travel History: No Initial Comments: 05/30/19 12:18 33-year-old female currently 11 weeks presents the ED with complaints of lower abdominal cramping without vaginal bleeding urinary complaints, fever, chills or nausea. 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 She denies recent travel recent illness or recent injury. Timing/Duration: reports: constant Quality: reports: mild, cramping Abdominal Pain Onset Location: reports: suprapubic Pain Radiation: denies: no radiation Activities at Onset: denies: none Aggravating Factors: worse with: None Alleviating Factors: worse with: None Past History - Travel Traveled outside of the country in the last 30 days: No Close contact w/someone who was outside of country & ill: No - Past Medical History Allergies/Adverse Reactions: Allergies Allergy/AdvReac Type Severity Reaction Status Date / Time No Known Allergies Allergy Verified 05/30/19 10:43 Home Medications: Ambulatory Orders NK [No Known Home Medication] 05/30/19 COPD: No - Suicide/Smoking/Psychosocial Hx Smoking History: Never smoked Have you smoked in the past 12 months: No Information on smoking cessation initiated: No Hx Alcohol Use: No Drug/Substance Use Hx: No Substance Use Type: None Patient Lives Alone: No Lives with/in: spouse/SO Review of Systems - Review of Systems Able to Perform ROS?: No Is the patient limited Sierra Leonean proficient: No Constitutional: No: Symptoms Reported HEENTM: No: Symptoms Reported Respiratory: No: Symptoms reported Cardiac (ROS): No: Symptoms Reported ABD/GI: Yes: Abdominal cramping : No: Symptoms Reported Musculoskeletal: No: Symptoms Reported Integumentary: No: Symptoms Reported Neurological: No: Symptoms reported Endocrine: No: Symptoms Reported *Physical Exam - Vital Signs Last Vital Signs Temp Pulse Resp BP Pulse Ox 98.6 F 79 19 102/59 L 100 05/30/19 10:41 05/30/19 10:41 05/30/19 10:41 05/30/19 10:41 05/30/19 10:41 - Physical Exam General Appearance: Yes: Nourished, Appropriately Dressed. No: Apparent Distress HEENT: negative: Pale Conjunctivae Neck: positive: Normal Thyroid Respiratory/Chest: positive: Lungs Clear, Normal Breath Sounds. negative: Respiratory Distress, Accessory Muscle Use Cardiovascular: positive: Regular Rhythm, Regular Rate. negative: Murmur Female Pelvic Exam: negative: discharge, vaginal bleeding Gastrointestinal/Abdominal: positive: Soft, Tenderness (midsuprapubic). negative: Distended, Guarding, Rebound Musculoskeletal: negative: CVA Tenderness Extremity: positive: Normal Inspection Integumentary: positive: Normal Color, Warm, Moist Neurologic: positive: Motor Strength 5/5 ( ambulatory) ED Treatment Course - LABORATORY CBC & Chemistry Diagram: 05/30/19 11:11 05/30/19 11:11 - ADDITIONAL ORDERS Additional order review: Laboratory Results 05/30/19 05/30/19 05/30/19 11:11 11:11 11:05 Sodium 138 Potassium 4.3 Chloride 106 Carbon Dioxide 25 Anion Gap 7 L BUN 8.1 Creatinine 0.6 Est GFR (CKD-EPI)AfAm 140.77 Est GFR (CKD-EPI)NonAf 121.46 Random Glucose 92 Calcium 9.1 Total Bilirubin 0.9 AST 13 L ALT 12 L Alkaline Phosphatase 51 Total Protein 6.8 Albumin 3.5 Beta HCG, Quant 59799.3 Urine Color Yellow Urine Appearance Cloudy Urine pH 5.5 Ur Specific [place] 1.025 Urine Protein Negative Urine Glucose (UA) Negative Urine Ketones Negative Urine Blood Negative Urine Nitrite Negative Urine Bilirubin Negative Urine Urobilinogen 1.0 Ur Leukocyte Esterase Negative Blood Type B POSITIVE Antibody Screen Negative 05/30/19 11:11 RBC 3.73 MCV 88.8 MCHC 33.6 RDW 13.0 MPV 8.4 Neutrophils % 55.3 Lymphocytes % 33.8 Monocytes % 7.4 Eosinophils % 2.9 Basophils % 0.6 - RADIOLOGY Radiology Studies Ordered: Category Date Time Status <14WKS US [US] Stat Ultrasound 05/30/19 10:49 Ordered - Medications Given in the ED: ED Medications Discontinued Medications Generic Name Dose Route Start Last Admin Trade Name Freq PRN Reason Stop Dose Admin Acetaminophen 975 mg 05/30/19 10:49 05/30/19 12:20 Tylenol - PO 05/30/19 10:50 975 mg ONCE ONE Administration Medical Decision Making - Medical Decision Making 05/30/19 12:21 Chief complaint: Lower abdominal pain the past few days without urinary complaints or vaginal discharge. Patient is currently on weeks with no ultrasound ordered [facility] [facility] visit as of yet Exam: Mid suprapubic tenderness on exam no CVA tenderness no unilateral tenderness Plan: Labs, urine, and Tylenol, ultrasound ordered 05/30/19 13:22 Laboratory Tests 05/30/19 05/30/19 05/30/19 11:05 11:11 11:11 WBC 6.2 Hgb 11.1 Hct 33.1 Absolute Neuts (auto) 3.5 Sodium Potassium Chloride Carbon Dioxide Anion Gap BUN Creatinine Random Glucose Calcium Total Bilirubin AST ALT Total Protein Albumin Beta HCG, Quant Urine Ketones Negative Urine Blood Negative Urine Bilirubin Negative Ur Leukocyte Esterase Negative Blood Type B POSITIVE Antibody Screen Negative 05/30/19 11:11 WBC Hgb Hct Absolute Neuts (auto) Sodium 138 Potassium 4.3 Chloride 106 Carbon Dioxide 25 Anion Gap 7 L BUN 8.1 Creatinine 0.6 Random Glucose 92 Calcium 9.1 Total Bilirubin 0.9 AST 13 L ALT 12 L Total Protein 6.8 Albumin 3.5 Beta HCG, Quant 03462.3 Urine Ketones Urine Blood Urine Bilirubin Ur Leukocyte Esterase Blood Type Antibody Screen 05/30/19 15:20 Pt states feeling much better. 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 Patient's ultrasound shows single live intrauterine estimating sonographic gestational age of 10 weeks 3 days. heart rate measuring 1 55 bpm. Patient recommended to take Tylenol for discomfort and follow-up with her [facility] at [address] [place] [address] *DC/Admit/Observation/Transfer Diagnosis at time of Disposition: Abdominal pain during - Discharge Dispostion Disposition: HOME Condition at time of disposition: Improved - Referrals - Patient Instructions Printed Discharge Instructions: DI for Abdominal Pain -- Early Additional Instructions: Drink plenty of fluids Please also take Tylenol for any discomfort. 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
== END 2019-05-30 19:44 | disposition home or self-care (01) ==
LOC: JER 10:31
DX: O26.891 Other specified pregnancy related conditions, first trimester (principal); R10.30 Lower abdominal pain, unspecified; Z3A.10 10 weeks gestation of pregnancy
CPT/HCPCS: 36415; 76801-TC; 80053; 81003; 84702; 85025; 86850; 86900; 86901; 87086; 99282-25

== ENCOUNTER 2019-08-25 17:50 | Emergency (ER) | payer OTHER ==
[2019-08-25 17:54] VITALS: BMI 26.6
--- NOTE | 2019-08-25 17:54 | PDOC ---
Rapid Medical Evaluation Chief Complaint: Urinary Problem Time Seen by Provider: 08/25/19 17:51 Medical Evaluation: Allergies Allergy/AdvReac Type Severity Reaction Status Date / Time No Known Allergies Allergy Verified 05/30/19 10:43 08/25/19 17:51 I have performed a brief in-person evaluation of this patient. The patient presents with a chief complaint of:23 weeks Preg with dysuria and back pain x 2 days Pertinent physical exam findings: Gravid abd I have ordered the following: UA/ UCx The patient will proceed to the ED for further evaluation. 08/25/19 17:52 Discharge Disposition - Diagnosis Dysuria during Qualifiers: Trimester: second trimester Qualified Code(s): O26.892 - Other specified related conditions, second trimester; R30.0 - Dysuria - Referrals - Patient Instructions - Post Discharge Activity
[2019-08-25 18:20] LABS: URINE APPEARANCE CLEAR; URINE BILIRUBIN NEGATIVE (NEGATIVE); URINE COLOR YELLOW; URINE GLUCOSE (UA) NEGATIVE (NEGATIVE); URINE KETONE NEGATIVE (NEGATIVE); URINE LEUK ESTERASE NEGATIVE (NEGATIVE); URINE NITRITE NEGATIVE (NEGATIVE); URINE PROTEIN NEGATIVE (NEGATIVE); URINE UROBILINOGEN 0.2 mg/dL (0.2-1.0)
[2019-08-25 21:20] VITALS: BP 106/54; PULSE 84; TEMP 98.5
--- NOTE | 2019-08-25 23:34 | CONSULT ---
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 Weeks Gestation by Dates: 3 ...EDC by Dates: 12/13/19 - Past Surgical History Past Surgical History: Yes: None - Smoking History Smoking history: Never smoked Have you smoked in the past 12 months: No - Alcohol/Substance Use Hx Alcohol Use: No - Social History History of Recent Travel: No Review of Systems - Review of Systems Constitutional: reports: No Symptoms Eyes: reports: No Symptoms HENT: reports: No Symptoms Neck: reports: No Symptoms Cardiovascular: reports: No Symptoms Respiratory: reports: No Symptoms Gastrointestinal: reports: No Symptoms Genitourinary: reports: No Symptoms, Pain Breasts: reports: No Symptoms Reported Musculoskeletal: reports: No Symptoms Integumentary: reports: No Symptoms Neurological: reports: No Symptoms Endocrine: reports: No Symptoms Hematology/Lymphatic: reports: No Symptoms Psychiatric: reports: No Symptoms Physical Exam - Maternity Vital Signs: Vital Signs Temperature 98.5 F 08/25/19 19:25 Pulse Rate 84 08/25/19 19:25 Respiratory Rate 20 08/25/19 19:25 Blood Pressure 106/54 L 08/25/19 19:25 O2 Sat by Pulse Oximetry (%) 99 08/25/19 17:51 - Abdominal Exam/OB Fundal Height: 24 Number of Fetuses: Single Presentation: Breech Contractions: No Intensity: Unaware Monitor Mode: External Heart Rate Location: Midline Decelerations: None - Vaginal Exam/OB Vaginal Bleediing: No Speculum Exam: No Dilatation (cm): 0 Effacement (%): 0 Amniotic Membrane Status: Intact Presentation: Etienne Breech Station: -4 - Physical Exam Musculoskeletal: Yes: WNL Extremities: Yes: WNL Deep Tendon Reflex Grade: Normal +2 Hemorrhage Risk Assessment - Risk Factors Medium Risk Factors: Yes: None High Risk Factors: Yes: None Risk Score: 1 Risk Level: Medium Risk Problem List - Problems (1) with 24 completed weeks gestation Code(s): Z3A.24 - 24 WEEKS GESTATION OF (2) Musculoskeletal pain Code(s): M79.18 - MYALGIA, OTHER SITE Assessment/Plan ob sono , normal advised follow up in clinic 1 week if pain , bleeding, dysuria, fever to return
== END 2019-08-26 00:35 | disposition home or self-care (01) ==
LOC: JERFT 17:50 → JER 17:50 → JERFT 08-26 00:35
DX: O26.892 Other specified pregnancy related conditions, second trimester (principal); M79.18 Myalgia, other site; Z3A.24 24 weeks gestation of pregnancy
CPT/HCPCS: 76801-TC; 76830-TC; 81003; 87086; 99281-25

== ENCOUNTER 2019-10-04 15:54 | Emergency (ER) | payer OTHER ==
--- NOTE | 2019-10-04 16:16 | PDOC ---
Rapid Medical Evaluation Chief Complaint: Sore Throat Time Seen by Provider: 10/04/19 16:14 Medical Evaluation: Allergies Allergy/AdvReac Type Severity Reaction Status Date / Time No Known Allergies Allergy Verified 08/25/19 17:54 10/04/19 16:15 I have performed a brief in-person evaluation of this patient. The patient presents with a chief complaint of: 259weeks with right ear , sore throat and nasal congestion since this AM. Denies fever, abd pains Pertinent physical exam findings: A&O x 3 in NAD. afebrile I have ordered the following:nothing The patient will proceed to the ED for further evaluation. Discharge Disposition - Diagnosis Pharyngitis - Discharge Dispostion Condition at time of disposition: Stable - Referrals - Patient Instructions - Post Discharge Activity
[2019-10-04 16:25] VITALS: PULSE 88; TEMP 98.2; BMI 27.3
[2019-10-04] MEDS ORDERED: ACETAMINOPHEN 500 MG TABLET (FP) PO ONE (18:01)
[2019-10-04] MEDS ORDERED: ACETAMINOPHEN 500 MG TABLET (FP) ONE (18:12)
--- NOTE | 2019-10-04 18:35 | PDOC ---
History of Present Illness - General Chief Complaint: Sore Throat Stated Complaint: SORE THROAT/EARACHE Time Seen by Provider: 10/04/19 16:14 History Source: Patient Exam Limitations: No Limitations - History of Present Illness Initial Comments: 10/04/19 18:26 34-year-old female 29 weeks gestational age presents complaining of sore throat, right ear pain since this morning. Reports a dry cough on and off x3 weeks, 2 episodes of nonbloody emesis while coughing this morning. Denies fever , chills, headache, chest pain, shortness of breath, back pain, sick contacts, recent travel, abdominal pain, vaginal bleeding or discharge. ROS: GENERAL/CONSTITUTIONAL: No fever, chills, weakness, dizziness HEAD, EYES, EARS, NOSE AND THROAT: Sore throat, right ear pain, no changes in vision CARDIOVASCULAR: No chest pain RESPIRATORY: Dry cough GASTROINTESTINAL: No pain, nausea, vomiting, diarrhea or constipation GENITOURINARY: No dysuria MUSCULOSKELETAL: No neck or back pain SKIN: No rash NEUROLOGIC: No headache, vertigo, loss of consciousness, or loss of sensation PE: GENERAL: well-appearing, NAD HEAD: NCAT EYES: Pupils equal, round and reactive to light, sclera anicteric, conjunctiva clear ENT: Normal bilateral ear canals, normal TM's, pharynx: no erythema, no exudate , uvula midline NECK: supple, no lymphadenopathy CHEST: nontender RESP: clear, no w/r/r CARDIO: rrr, no m/g/r ABD: Gravid abdomen, +BS, soft, nontender BACK: no midline spinal ttp, no CVAT EXTREMITIES: Normal range of motion, no edema NEUROLOGICAL: Normal speech, normal gait SKIN: Warm, Dry Is this a multiple visit Asthma Patient?: No Past History - Past Medical History Allergies/Adverse Reactions: Allergies Allergy/AdvReac Type Severity Reaction Status Date / Time No Known Allergies Allergy Verified 10/04/19 16:15 Home Medications: Ambulatory Orders NK [No Known Home Medication] 05/30/19 COPD: No - Surgical History Cholecystectomy: Yes - Immunization History Immunization Up to Date: Yes - Psycho Social/Smoking Cessation Hx Smoking History: Never smoked Have you smoked in the past 12 months: No Hx Alcohol Use: No Drug/Substance Use Hx: No Substance Use Type: None *Physical Exam - Vital Signs Last Vital Signs Temp Pulse Resp BP Pulse Ox 98.2 F 88 16 97/60 99 10/04/19 16:15 10/04/19 16:15 10/04/19 16:15 10/04/19 16:15 10/04/19 16:15 ED Treatment Course - Medications Given in the ED: ED Medications Discontinued Medications Generic Name Dose Route Start Last Admin Trade Name [place] PRN Reason Stop Dose Admin Acetaminophen 1,000 mg 10/04/19 18:01 10/04/19 18:14 Tylenol - PO 10/04/19 18:02 1,000 mg ONCE ONE Administration Medical Decision Making - Medical Decision Making 10/04/19 18:35 34-year-old female 29 weeks gestation complains of intermittent dry cough x3 weeks, right ear pain and sore throat since this morning. Denies abdominal pain , vaginal bleeding or vaginal discharge, fever, chills, chest pain, shortness of breath. Well appearing Likely viral illness Acetaminophen p.o. Stable for discharge Return precautions Discharge - Discharge Information Problems reviewed: Yes Clinical Impression/Diagnosis: Pharyngitis Qualifiers: Pharyngitis/tonsillitis etiology: other specified organisms Qualified Code(s): J02.8 - Acute pharyngitis due to other specified organisms Condition: Stable Disposition: HOME - Follow up/Referral - Patient Discharge Instructions Additional Instructions: Rest, remain hydrated Acetaminophen every 6 hours for pain as needed Follow-up with your doctor this week Return to ED if symptoms worsen - Post Discharge Activity
[2019-10-04 18:37] VITALS: BP 88/59
== END 2019-10-04 18:45 | disposition home or self-care (01) ==
LOC: JERFT 15:54
DX: O99.89 Other specified diseases and conditions complicating pregnancy, childbirth and the puerperium (principal); J02.9 Acute pharyngitis, unspecified; Z3A.29 29 weeks gestation of pregnancy
CPT/HCPCS: 99281-25